=== PATIENT | male | born 1940 | race Caucasian/White ===

== ENCOUNTER 2018-02-18 10:34 | Emergency (ER) | payer MEDICARE ==
--- NOTE | 2018-02-18 11:26 | RAD ---
RIGHT HAND THREE VIEWS: HISTORY: Injury. Right hand pain. FINDINGS: There is an old, incompletely healed fracture of the radial styloid. Degenerative changes are presen t in the wrist and hand. No acute fracture or dislocation is identified. POS: [facility]
[2018-02-18] MEDS ORDERED: Lidocaine 1% w/Epinephrine 1:100K 20 ML VIAL ONE (12:05)
[2018-02-18] MEDS ORDERED: Adacel (T-DAP) 0.5 ML VIAL ONE (12:10)
[2018-02-18] MEDS ORDERED: Bacitracin Zinc 1 Packet ONE (12:39)
== END 2018-02-18 12:55 | disposition home or self-care (01) ==
LOC: ERS 10:34
DX: S61.411A Laceration without foreign body of right hand, initial encounter (principal); S61.012A Laceration without foreign body of left thumb without damage to nail, initial encounter; I25.2 Old myocardial infarction; I10 Essential (primary) hypertension; E11.9 Type 2 diabetes mellitus without complications; W26.8XXA Contact with other sharp object(s), not elsewhere classified, initial encounter; Y92.009 Unspecified place in unspecified non-institutional (private) residence as the place of occurrence of the external cause
CPT/HCPCS: 12002; 90471; 90715; J2001

== ENCOUNTER 2018-03-09 13:27 | Outpatient (CLI) | payer MEDICARE ==
--- NOTE | 2018-03-09 15:16 | RAD ---
CHEST TWO VIEWS: History: Pre op. Comparison: 06-04-15 FINDINGS: There is eventration of the right hemidiaphragm. No focal airspace consolidation, pneumothorax, or ef fusion. No acute osseous abnormality. IMPRESSION: Similar exam. No acute intrathoracic abnormality. POS: [facility]
[2018-03-09 15:46] LABS: #Basophils 0.1 thou/uL (0.0-0.2); #Eosinphils 0.4 thou/uL (0.0-0.7); #Lymphocytes 3.8 thou/uL (1.20-3.40); #Monocytes 1.4 thou/uL (0.11-0.59); #Neutrophils 5.5 thou/uL (1.40-6.50); %Basophils 0.8 % (0.0-1.0); %Eosinophils 3.9 % (0.0-10.0); %Lymphocytes 33.9 % (21.0-51.0); %Monocytes 12.5 % (0.0-10.0); %Neutrophils 48.8 % (42.0-75.0); Bilirubin Negative (Negative); Blood, Urine Negative (Negative); Clarity CLEAR (Clear); Glucose, Urine (Dipstick) Negative (Negative); Leukocyte Trace (Negative); Mean Corpuscular HGB CONC 35.3 g/dL (32.0-36.0); Mean Corpuscular Hemoglobin 32.1 pg (27.0-31.0); Nitrite Negative (Negative); Platelet Count 320 thou/uL (130-400); Protein, Urine (Dipstick) Negative (Neg-Trace); RBC Distribution Width 11.8 % (11.5-14.5); Red Blood Cell (RBC) Count 4.66 mill/uL (4.70-6.10); Specific Gravity, Urine 1.019 (1.002-1.036); Urobilinogen 0.2 mg/dL (0.2-1.0); White Blood Cell (WBC) Count 11.3 thou/uL (4.8-10.8)
[2018-03-09 15:48] LABS: Bacteria/HPF None Seen HPF (None Seen); Hyaline Casts/LPF 0-3 HYALINE CAST LPF (0-3 Hyaline); Squamous Epithelial None Seen HPF (0-3); WBC/HPF 0-3 HPF (0-3)
[2018-03-09 16:04] LABS: Anion Gap 13 mmol/L (10-20); BUN (Urea Nitrogen) 18 mg/dL (8.4-25.7); Calc. Creatinine Clearance 0 mL/min (70-130); Calcium 9.8 mg/dL (7.8-10.44); Carbon Dioxide 25 mmol/L (23-31); Chloride 100 mmol/L (98-107); Estimated GFR-MDRD 72; Glucose 93 mg/dL (83-110); Potassium 4.4 mmol/L (3.5-5.1); Sodium 134 mmol/L (136-145)
[2018-03-09 16:09] LABS: INR-International Normal Ratio 0.9; Prothrombin Time 12.1 SEC (12.0-14.7)
--- NOTE | 2018-03-10 17:01 | EKG ---
Test Reason : Blood Pressure : / mmHG Vent. Rate : 078 BPM Atrial Rate : 078 BPM P-R Int : 204 ms QRS Dur : 076 ms QT Int : 350 ms P-R-T Axes : 061 010 009 degrees QTc Int : 399 ms Normal sinus rhythm Anterior infarct , age undetermined cannot be excluded Abnormal ECG Confirmed by LEEANNE DE LA O ([id number]) on 03/10/2018 5:01:10 PM Referred By: ROD Confirmed By:LEEANNE DE LA O
== END 2018-03-09 13:28 | disposition home or self-care (01) ==
LOC: LABBT 13:27
PROVIDERS: ATTEND Orthopaedic Surgery
DX: Z01.818 Encounter for other preprocedural examination (principal); M16.11 Unilateral primary osteoarthritis, right hip
CPT/HCPCS: 71046; 80048; 81001; 85025; 85610; 86850; 86900; 86901; 87081; 93005; 93010

== ENCOUNTER 2018-10-07 12:19 | Outpatient (CLI) | payer MEDICARE ==
--- NOTE | 2018-10-07 15:20 | MRI ---
FExam: Lumbar spine MRI with and without contrast HISTORY: Radiculopathy COMPARISON: None FINDINGS: Appropriate T1 marrow signal intensity of the lumbar vertebra. Lumbar spine vertebral body height is maintained. There is no fracture. There is mild T2 and STIR hyperintensity with enhancement involving the left and right pedicles at L4 and left facet at L5. Edematous changes are felt to be due to mech anical stress/stress reaction. 4.1 mm of anterolisthesis of L4 upon L5 Symmetric signal intensity of this paraspinal muscles. T2 hyperintensity in the left renal cortex, me asuring 2.5 cm likely renal cortical cyst Conus medullaris terminates at the upper aspect of L1. Postcontrast images demonstrate ad enhancement involving the posterior elements at L4 and L5 as descr ibed above. No additional significant vertebral body enhancement. There is no enhancement within the thecal sac, including the cauda equina and conus medullaris. T12-L1: No significant central canal stenosis or foraminal narrowing L1-L2: No significant central canal stenosis or foraminal narrowing. Mild bilateral facet hypertrophy L2-L3: Generalized disc bulge with a small left subarticular component. Mild central canal stenosis. Disc material abuts but does not obscure the traversing left L3 nerve root. Mild bilateral facet hype rtrophy. Moderate bilateral foraminal narrowing L3-L4: Adequate disc hydration. No significant loss of disc space height. No significant central dio l stenosis. Mild bilateral foraminal narrowing L4-L5: Mild loss of disc space height. Broad-based disc bulge, ligament flavum thickening and facet h ypertrophy result in moderate to severe central canal stenosis. Moderate to severe right and left for aminal narrowing. L5-S1: Posterior laminectomy defect. Minimal central disc bulge without significant central canal jose migeul nosis. On the postcontrast images, there is enhancing scar tissue at the laminectomy defect sites. Th ere appears to be enhancing scar tissue in the right and to a lesser extent left subarticular zones. Scar tissue encompasses bilateral traversing S1 nerve roots. Moderate bilateral foraminal narrowing. IMPRESSION: 1. Edematous change and enhancement involving the posterior elements at L4 and L5 likely due to stres s reaction/mechanical stresses. 2. Laminectomy defect at L5-S1 with enhancing scar tissue at the operative site. There is enhancing s car tissue in both subarticular zones, right greater than left. Scar tissue encompasses bilateral tra versing S1 nerve roots. 3. Moderate to severe central canal stenosis at L4-L5. Moderate to severe bilateral foraminal narrowi ng.
--- NOTE | 2018-10-07 15:28 | MRI ---
FMRI cervical spine with and without contrast: 10/07/2018 HISTORY: 78-year-old male cervicalgia, cervical degenerative disc disease, cervical radiculopathy. COMPARISON: 11/29/2014 FINDINGS: C1-2: No high-grade central stenosis. C2-3: Disc space maintained. No high-grade central stenosis. Diffuse enhancement of bilateral neural foramina. No high-grade bony neural foraminal stenosis. Mild right bony neural foraminal stenosis. An kylosis of right facet joint. Essentially normal left facet joint. C3-4: Anterior metallic plate and screws are new since 2014. Interbody cage with successful ankylosis across the endplates, new since 2014. Chronic degenerative retrolisthesis of C3 on C4 and bony hyper trophy of vertebral body encroach upon anterior aspect of the spinal canal, and causes somewhat sever e central spinal canal stenosis, although not as severe as in 2014. Large bilateral uncinate process osteophytes cause severe bilateral neural foraminal stenosis. No high-grade facet DJD. C4-5: Disc space maintained. Mild ligamentum flavum thickening. Moderate central spinal canal stenosi s. Severe right facet degenerative bony hypertrophy. Essentially normal left facet joint. Severe righ t neural foraminal stenosis. Moderate left neural foraminal stenosis. C5-6: There is a new finding of moderate ligamentum flavum thickening that abuts the dorsal surface o f the spinal cord. Broad-based disc-osteophyte bar complex abuts the ventral surface of the spinal co rd. Mild anterolisthesis of C5 on C6 by a couple of millimeters. Together, these result in severe central spinal canal stenosis. Moderate to severe right degenerative facet changes. Severe left degenerative facet changes. Moderately large bilateral uncinate process o steophytes. Severe bilateral neural foraminal stenosis. C6-7: Again noted is the severe disc space narrowing and endplate irregularity. Broad-based irregular ly-shaped ossific bar encroaches upon the anterior aspect of the spinal canal causing mild central sp inal canal stenosis. Large bilateral uncinate process osteophytes result in severe bilateral neural f oraminal stenosis, left worse than right. No high-grade facet DJD. C7-T1: No central stenosis. Similar severe right facet DJD. Moderate left facet DJD. Mild to moderate right neural foraminal stenosis. No left neural foraminal stenosis. IMPRESSION: 1. Cervical spondylosis with multilevel high-grade facet osteoarthrosis and severe degenerative disc disease. 2. Status post anterior cervical discectomy and fusion at C3-4. 3. Multilevel high-grade central spinal canal stenosis, including severe at C5-6, followed by C3-4. 4. Multilevel high-grade neural foraminal stenosis, including severe.
== END 2018-10-07 12:20 | disposition home or self-care (01) ==
LOC: BICMRI 12:19 → SCSMRI 12:20
PROVIDERS: ATTEND Neurological Surgery
DX: M50.30 Other cervical disc degeneration, unspecified cervical region (principal); M54.16 Radiculopathy, lumbar region; M54.5 Low back pain; M48.061 Spinal stenosis, lumbar region without neurogenic claudication; M48.02 Spinal stenosis, cervical region; R60.0 Localized edema; M47.812 Spondylosis without myelopathy or radiculopathy, cervical region; Z98.1 Arthrodesis status; Z98.890 Other specified postprocedural states
CPT/HCPCS: 72156; 72158; 82565

== ENCOUNTER 2018-10-31 00:11 | Outpatient (CLI) | payer MEDICARE ==
[2018-10-31 12:30] LABS: Hemoglobin 13.8 g/dL (14.0-18.0); Mean Corpuscular HGB CONC 33.7 g/dL (32.0-36.0); Mean Corpuscular Hemoglobin 31.6 pg (27.0-31.0); Mean Corpuscular Volume 93.8 fL (78.0-98.0); Mean Platelet Volume 6.2 fL (7.4-10.4); Platelet Count 309 thou/uL (130-400); RBC Distribution Width 12.1 % (11.5-14.5); Red Blood Cell (RBC) Count 4.37 mill/uL (4.70-6.10); White Blood Cell (WBC) Count 10.9 thou/uL (4.8-10.8)
[2018-10-31 12:51] LABS: Anion Gap 13 mmol/L (10-20); BUN (Urea Nitrogen) 21 mg/dL (8.4-25.7); Calc. Creatinine Clearance 0 mL/min (70-130); Calcium 9.7 mg/dL (7.8-10.44); Carbon Dioxide 23 mmol/L (23-31); Estimated GFR-MDRD 75; Glucose 102 mg/dL (83-110); Potassium 4.3 mmol/L (3.5-5.1)
[2018-10-31 12:53] LABS: Chloride 100 mmol/L (98-107); Sodium 132 mmol/L (136-145)
--- NOTE | 2018-11-01 22:56 | EKG ---
Test Reason : Blood Pressure : / mmHG Vent. Rate : 076 BPM Atrial Rate : 076 BPM P-R Int : 210 ms QRS Dur : 082 ms QT Int : 346 ms P-R-T Axes : 077 041 049 degrees QTc Int : 389 ms Sinus rhythm with 1st degree A-V block Anterior infarct (cited on or before 04-JAN-2015)/can not be excluded Abnormal ECG When compared with ECG of 09-MAR-2018 14:37, No significant change was found Confirmed by YOHANNES CHILD ([id number]) on 11/01/2018 10:56:33 PM Referred By: DAHLIA Confirmed By:YOHANNES CHILD
== END 2018-10-31 00:12 | disposition home or self-care (01) ==
LOC: LABBT 00:11
PROVIDERS: ATTEND Neurological Surgery
DX: Z01.818 Encounter for other preprocedural examination (principal); M48.061 Spinal stenosis, lumbar region without neurogenic claudication
CPT/HCPCS: 93005; 93010

== ENCOUNTER 2018-11-01 14:36 | Emergency (ER) | payer MEDICARE ==
[2018-11-01] MEDS ORDERED: Ondansetron ODT 4 MG TAB ONE (15:00)
[2018-11-01] MEDS ORDERED: Ketorolac Tromethamine 30 MG/ML VIAL ONE (15:01)
[2018-11-01] MEDS ORDERED: Morphine 4 MG/ML VIAL ONE (15:01)
--- NOTE | 2018-11-01 15:30 | RAD ---
CHEST 2 VIEWS: Date: 11/01/18 HISTORY: Dyspnea. COMPARISON: Radiograph dated 03/09/18. FINDINGS: Lungs are clear. No pneumothorax or effusion. Mild ectasia of the descending thoracic aorta, similar. Multiple bridging anterior osteophytes of the thoracic spine. IMPRESSION: No acute intrathoracic abnormality. POS: [facility]
== END 2018-11-01 15:39 | disposition home or self-care (01) ==
LOC: ERS 14:36
DX: S20.212A Contusion of left front wall of thorax, initial encounter (principal); I25.2 Old myocardial infarction; I10 Essential (primary) hypertension; E11.9 Type 2 diabetes mellitus without complications; Z79.899 Other long term (current) drug therapy; Z79.82 Long term (current) use of aspirin; W01.0XXA Fall on same level from slipping, tripping and stumbling without subsequent striking against object, initial encounter
CPT/HCPCS: 71046; 96372; J1885; J2270; Q0162

== ENCOUNTER 2018-11-07 07:34 | Day surgery (SDC) | payer MEDICARE ==
[2018-10-31 10:36] VITALS: BMI 28.8
--- NOTE | 2018-11-06 22:44 | HP ---
HISTORY OF PRESENT ILLNESS: Mr. Patiño is a 78-year-old man, here today for discussion of severe bilateral buttock pain and lower back pain as well as neurogenic claudication. He has an MRI from [facility] that reveals significant L4-L5 stenosis, which is adjacent to his previous lumbar decompressive level L5-S1. He hopes to move forward with surgery and defer on any conservative treatment at this time. PAST MEDICAL HISTORY: Significant for hypercholesterolemia, diabetes, coronary arterial disease, hypertension, and osteoarthritis. CURRENT MEDICATIONS: Amlodipine, finasteride, omeprazole, spironolactone, tamsulosin, lisinopril, isosorbide mononitrate, metformin, metoprolol, pravastatin, pramipexole, aspirin. PAST SURGICAL HISTORY: Right knee replacement, lumbar laminectomy, neck ACDF, left hip replacement, right hip replacement. ALLERGIES: NO KNOWN DRUG ALLERGIES. PHYSICAL EXAMINATION: The patient is alert and oriented x3. Gait is severely antalgic. Lower extremity motor exam is normal. ASSESSMENT: Lumbar stenosis and back pain. PLAN: Dr. Washington met with the patient, reviewed imaging, advocated for L4-L5 decompression. He explained to the patient the risks, benefits, and alternatives to the procedure. The patient expressed understanding and elected to move forward with surgery as discussed. I do believe that the patient is mentally competent and capable of making medical decisions for himself. We will move forward with surgery as planned. Job ID: [id number]
[2018-11-07] MEDS ORDERED: Bupivacaine HCl 0.5%/Epinephrine 1:200,000/PF 30 ml Vial ONE (08:16)
[2018-11-07] MEDS ORDERED: Fentanyl 100 MCG/2 ML VIAL ONE (08:33)
[2018-11-07] MEDS ORDERED: HYDROmorphone 2 MG/ML VIAL ONE ×2 (10:00→10:36)
[2018-11-07] MEDS ORDERED: Tamsulosin HCl 0.4 MG CAP ONE (11:11)
--- NOTE | 2018-11-07 16:34 | OP ---
DATE OF PROCEDURE: 11/07/2018 MOLECULAR SPECTROSCOPIST: Hao Pedersen PA-C. INDICATION: Pain. DIAGNOSIS: Lumbar stenosis. PROCEDURE PERFORMED: Re-operation L4-L5 lumbar decompression. ANESTHESIA: General. DESCRIPTION OF PROCEDURE: The patient was brought into the operating room and placed under general anesthesia. He was flipped from the supine to prone position on the operating room table. A portion of the prior incision site was prepped and draped in the usual sterile fashion. Following an appropriate operative pause, the incision was created. The soft tissues were swept away from midline. Bone defects were identified, and bone margins were utilized to perform additional laminectomy extending up to L4-L5. High-speed cutting drill bit as well as 2, 3, and 4 mm Kerrisons was used to extend the laminectomy up to top of L4 and extended laterally to encompass the medial aspect of the facet joints at this level. The wound was then irrigated. Hemostasis was maintained throughout. The wound was then closed in anatomic layers, and a pressure dressing was applied. There were no known procedural complications. Job ID: [id number]
[2018-11-07] MEDS ORDERED: Glycopyrrolate 0.2 MG/ML 5 ML SYRINGE ONE (16:48)
[2018-11-07] MEDS ORDERED: Dexamethasone 20 MG/5 ML VIAL ONE (16:48)
[2018-11-07] MEDS ORDERED: PHENYLEPHRINE-NS 100 MCG/ML 10 ML SYRINGE ONE (16:48)
[2018-11-07] MEDS ORDERED: Ondansetron PF 4 MG/2 ML Vial ONE (16:48)
[2018-11-07] MEDS ORDERED: Metoclopramide HCl 10 MG/2 ML VIAL ONE (16:48)
[2018-11-07] MEDS ORDERED: Rocuronium Bromide 10 MG/ML (10ML VIAL) ONE (16:48)
[2018-11-07] MEDS ORDERED: Lidocaine 1% PF 5 ML VIAL ONE (16:48)
[2018-11-07] MEDS ORDERED: PROPOFOL 200 MG/20 ML VIAL ONE (16:48)
== END 2018-11-07 13:50 | disposition home or self-care (01) ==
LOC: SDC 07:34
PROVIDERS: ATTEND Neurological Surgery
PROC: 01NB0ZZ Release Lumbar Nerve, Open Approach (ICD-10-PCS; principal; 2018-11-07)
DX: M48.062 Spinal stenosis, lumbar region with neurogenic claudication (principal); E78.00 Pure hypercholesterolemia, unspecified; E11.9 Type 2 diabetes mellitus without complications; I25.10 Atherosclerotic heart disease of native coronary artery without angina pectoris; I10 Essential (primary) hypertension; M19.90 Unspecified osteoarthritis, unspecified site; G47.30 Sleep apnea, unspecified; K21.9 Gastro-esophageal reflux disease without esophagitis; N40.0 Benign prostatic hyperplasia without lower urinary tract symptoms; Z87.891 Personal history of nicotine dependence; Z79.82 Long term (current) use of aspirin; Z79.84 Long term (current) use of oral hypoglycemic drugs; Z79.899 Other long term (current) drug therapy; Z98.1 Arthrodesis status; Z96.651 Presence of right artificial knee joint; Z96.643 Presence of artificial hip joint, bilateral
CPT/HCPCS: 76000; J0131; J0670; J0690; J1100; J1170; J2001; J2405; J2704; J2765; J3010

== ENCOUNTER 2019-03-20 14:15 | Outpatient (CLI) | payer MEDICARE ==
[~2019-03-20 14:15] MED LIST: Gadobenate Dimeglumine 529 MG/1 ML (20ML VIAL) ONE
--- NOTE | 2019-03-20 16:13 | MRI ---
Lumbar spine MRI with and without contrast: 03/20/2019 HISTORY: Lumbar radiculopathy, low back pain, left lower extremity radiculopathy, prior back surgery TECHNIQUE: Multiplanar multisequence MR imaging of the lumbar spine obtained with and without contras t. COMPARISON: 10/07/2018 FINDINGS: The sagittal STIR imaging demonstrates no focal area of osseous marrow edema. On the basis of 5 lumbar type vertebral bodies, conus medullaris terminates at T12-L1. T12-L1: There is disc space narrowing and disc desiccation. No significant central canal or neural fo raminal stenosis. Prominent anterior osteophyte formation noted on the right. L1-2: Mild disc space narrowing and disc desiccation. Prominent anterior osteophyte formation. Mild b ilateral facet hypertrophy. No significant central canal or neural foraminal stenosis. L2-3: There is bilateral facet hypertrophy. There is disc space narrowing and disc desiccation with m ild disc bulge. Anterior osteophyte formation noted. There is no significant central canal or neural foraminal stenosis. L3-4: Mild bilateral facet hypertrophy. Disc desiccation noted. Mild left neural foraminal stenosis. No significant central canal or right neural foraminal stenosis. L4-5: Bilateral laminectomy change noted. Prominent bilateral facet hypertrophy, right greater than l eft. No significant central canal stenosis. Severe bilateral neural foraminal stenosis, not significantly changed. There is a synovial cyst emanating from the right L4-5 facet joint measuring 5 mm, causing a degree o f right lateral recess stenosis. In addition, there is a synovial cyst associated with the left facet joint at L4-5 measuring 7-8 mm. This causes prominent left lateral recess stenosis. The central canal stenosis and prominent right lateral recess stenosis at L4-5 noted on the prior exa mination is significantly improved. L5-S1: Bilateral facet hypertrophy. Mild right and moderate left neural foraminal stenosis. There is disc desiccation and mild disc bulge. No significant central canal stenosis. T2 hyperintense incompletely imaged lesions are noted within both kidneys, likely representing incomp letely imaged cysts. There is rim enhancement associated with the medial synovial cyst emanating from the left L4-5 facet joint. There is soft tissue enhancement posterior to the thecal sac at the L4-5 level consistent with postoperative scar. There is enhancement in the region of the synovial cyst emanating from the r ight L4-5 facet joint as well. IMPRESSION: Significant postoperative and degenerative change of the lumbar spine as detailed above. 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 There is als o severe stable bilateral L4-5 neural foraminal stenosis.
--- NOTE | 2019-03-20 16:19 | RAD ---
Exam: XR Hip Lt 2-3 View HISTORY: Left hip pain. COMPARISON: 06/11/2015. FINDINGS: Again noted is a left total hip prosthesis without evidence of a hardware complication. No acute fracture, dislocation, or other acute osseous abnormality is identified. IMPRESSION: Stable appearance of left total hip prosthesis. No acute osseous abnormality is identified.
== END 2019-03-20 14:16 | disposition home or self-care (01) ==
LOC: BICMRI 14:15
PROVIDERS: ATTEND Neurological Surgery
DX: M25.552 Pain in left hip (principal); M47.26 Other spondylosis with radiculopathy, lumbar region; M48.061 Spinal stenosis, lumbar region without neurogenic claudication; M71.38 Other bursal cyst, other site; Z98.890 Other specified postprocedural states; Z96.642 Presence of left artificial hip joint
CPT/HCPCS: 72158; 82565; A9577

== ENCOUNTER 2019-03-23 06:09 | Emergency (ER) | payer MEDICARE ==
[2019-03-23] MEDS ORDERED: Morphine 4 MG/ML VIAL ONE (07:17)
[2019-03-23] MEDS ORDERED: Dexamethasone 10 MG/ML VIAL ONE (07:18)
[2019-03-23] MEDS ORDERED: Ondansetron PF 4 MG/2 ML Vial ONE (07:41)
== END 2019-03-23 08:30 | disposition home or self-care (01) ==
LOC: ERS 06:09
DX: M54.5 Low back pain (principal); I25.2 Old myocardial infarction; I10 Essential (primary) hypertension; E11.9 Type 2 diabetes mellitus without complications; Z79.899 Other long term (current) drug therapy; Z79.82 Long term (current) use of aspirin; Z79.84 Long term (current) use of oral hypoglycemic drugs
CPT/HCPCS: 96374; 96375; J1100; J2270; J2405

== ENCOUNTER 2019-06-18 12:57 | Emergency (ER) | payer MEDICARE ==
--- NOTE | 2019-06-18 14:13 | RAD ---
EXAM: 3 views of the left wrist HISTORY: Wrist pain after fall COMPARISON: None FINDINGS: 3 views of the left wrist shows no evidence of acute fracture or dislocation. Mild soft tis gualberto swelling is seen. Moderate radiocarpal and first CMC degenerative changes are present. IMPRESSION: Moderate wrist and thumb osteoarthritis without acute osseous abnormality.
--- NOTE | 2019-06-18 14:13 | RAD ---
EXAM: Left Rib series HISTORY: Rib pain after fall COMPARISON: None FINDINGS: Multiple views of the left ribs shows no evidence of displaced rib fracture. No underlying pleural th ickening or pneumothorax are seen. IMPRESSION: 1. No evidence of displaced rib fracture.
--- NOTE | 2019-06-18 14:50 | RAD ---
EXAM: 2 views of the left forearm HISTORY: Forearm pain COMPARISON: None FINDINGS: There is no evidence of acute fracture or dislocation. No soft tissue swelling is seen. Mod erate to severe wrist degenerative changes are seen. There is widening of the scapholunate interval likely secondary to degenerative change.. IMPRESSION: Left wrist osteoarthritis without evidence of acute osseous abnormality.
--- NOTE | 2019-06-18 16:03 | CT ---
CT chest noncontrast CT thoracic spine noncontrast HISTORY: Fall. Chest injury. Back injury. FINDINGS: No evidence of pneumothorax or pleural fluid. Lungs are slightly hyperinflated. Nonspecific 0.9 cm nodule is associated with the pleura of the left major fissure. No parenchymal lung mass evident. No displaced rib fracture visible. Lack of contrast limits evaluation of soft tissues. There is calcification throughout the arterial st ructures. No mediastinal adenopathy apparent. Prominent osteophytosis throughout the vertebral bodies and facets of the thoracic spine. Degenerativ e changes cervical spine also evident. No acute fracture or dislocation. IMPRESSION: No evidence of rib fracture or other acute traumatic process. Atherosclerosis.
== END 2019-06-18 16:18 | disposition home or self-care (01) ==
LOC: ERS 12:57
DX: M79.632 Pain in left forearm (principal); I25.2 Old myocardial infarction; I10 Essential (primary) hypertension; E11.9 Type 2 diabetes mellitus without complications; W18.30XA Fall on same level, unspecified, initial encounter
CPT/HCPCS: 71250

== ENCOUNTER 2019-08-02 07:37 | Day surgery (SDC) | payer MEDICARE ==
[2019-08-01 10:55] VITALS: BMI 28.5
[2019-08-02] MEDS ORDERED: Fentanyl 100 MCG/2 ML VIAL ONE (08:43)
[2019-08-02] MEDS ORDERED: Lidocaine 1% w/Epinephrine 1:100K 20 ML VIAL ONE (08:50)
--- NOTE | 2019-08-02 11:00 | OP ---
DATE OF PROCEDURE: 08/02/2019 EXTRUDER TENDER: Hao Pedersen PA-C INDICATIONS: Pain and numbness. PROCEDURE PERFORMED: Left carpal tunnel release. DIAGNOSIS: Left carpal tunnel syndrome. ANESTHESIA: General. DESCRIPTION OF PROCEDURE: The patient was brought into the operating room and placed under general anesthesia. He was placed on table in a supine position with his arm extended perpendicular to his body. The arm and hand were prepped up to the level just above the elbow. After prepping and draping and after an appropriate operative pause, a linear incision was created along the crease in the wrist in line with the long axis of the 4th digit. This area had previously been infiltrated with lidocaine with epinephrine. A self-retaining retractor was placed. The carpal tunnel ligament was then identified and incised. The incision was extended in both proximal and distal directions until the elements of the carpal tunnel were decompressed. The wound was irrigated. Hemostasis was maintained throughout. The wound was then closed in anatomic layers, and a pressure dressing was applied. There were no known procedural complications. Job ID: [id number]
--- NOTE | 2019-08-02 11:37 | HP ---
HISTORY OF PRESENT ILLNESS: Mr. Patiño is a very pleasant 79-year-old gentleman, who is known to us for prior neck and lower back issues, both evaluations and surgeries, who returns now after having visited with Dr. Bermudez for persistent lower back pain and radicular pain. 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 He also reports significant left hand intrinsic weakness and numbness, and hopes to discuss potential intervention for that as well. PAST MEDICAL HISTORY: Significant for hypercholesterolemia, diabetes, coronary arterial disease, hypertension, and osteoarthritis. CURRENT MEDICATIONS: 1. Amlodipine. 2. Finasteride. 3. Omeprazole. 4. Spironolactone. 5. Tamsulosin. 6. Lisinopril. 7. Isosorbide mononitrate. 8. Metformin. 9. Metoprolol. 10. Pravastatin. 11. Pramipexole. 12. Aspirin. PAST SURGICAL HISTORY: Right knee replacement, lumbar laminectomy, ACDF, left and right hip replacements. ALLERGIES: NO KNOWN DRUG ALLERGIES. PHYSICAL EXAMINATION: NEUROLOGIC: The patient is alert and oriented x3. Gait is severely antalgic. Lower extremity motor exam is normal. He does have a positive bilateral straight leg raise. Additionally, he has sensory disturbance to the left hand across the 1 through 3 digits of said hand. There is a positive median nerve Tinel's. ASSESSMENT: Lumbar stenosis and synovial cyst and left carpal tunnel syndrome. PLAN: Dr. Washington met with Mr. Patiño, discussed exam findings and imaging findings, and advocated for left carpal tunnel syndrome as this is the more pressing issue for Mr. Patiño at the moment. He explained to the patient the risks, benefits, and alternatives to the procedure. The patient expressed understanding and elected to move forward with surgery as discussed. I do believe the patient is mentally competent and capable of making medical decisions for himself. We will move forward with surgery as planned. Job ID: [id number]
[2019-08-02] MEDS ORDERED: PROPOFOL 200 MG/20 ML VIAL ONE (12:10)
[2019-08-02] MEDS ORDERED: Lidocaine 1% PF 5 ML VIAL ONE (12:10)
[2019-08-02] MEDS ORDERED: Ondansetron PF 4 MG/2 ML Vial ONE (12:10)
[2019-08-02] MEDS ORDERED: ePHEDrine/0.9% NaCl/PF SYRINGE 50 mg/10 ml ONE (12:10)
[2019-08-02] MEDS ORDERED: Ketorolac Tromethamine 30 MG/ML VIAL ONE (12:10)
== END 2019-08-02 10:52 | disposition home or self-care (01) ==
LOC: SDC 07:37
PROVIDERS: ATTEND Neurological Surgery
PROC: 01N50ZZ Release Median Nerve, Open Approach (ICD-10-PCS; principal; 2019-08-02)
DX: G56.02 Carpal tunnel syndrome, left upper limb (principal); M48.061 Spinal stenosis, lumbar region without neurogenic claudication; E11.9 Type 2 diabetes mellitus without complications; E78.00 Pure hypercholesterolemia, unspecified; I10 Essential (primary) hypertension; I25.10 Atherosclerotic heart disease of native coronary artery without angina pectoris; M19.90 Unspecified osteoarthritis, unspecified site; Z79.82 Long term (current) use of aspirin; Z79.84 Long term (current) use of oral hypoglycemic drugs; Z79.899 Other long term (current) drug therapy
CPT/HCPCS: J0690; J1885; J2001; J2405; J2704; J3010

== ENCOUNTER 2019-08-23 05:32 | Inpatient (IN) | payer MEDICARE ==
[2019-08-21 15:13] VITALS: BMI 27.8
--- NOTE | 2019-08-22 13:30 | HP ---
HISTORY OF PRESENT ILLNESS: Mr. Patiño is a very pleasant 79-year-old man known to us for prior evaluations of low back and most recently had a carpal tunnel release. He returns now to discuss continuing on lower back pain and symptoms of neurogenic claudication. He has a repeat MRI that reveals severe L4-5 stenosis secondary to synovial cyst. He had aspirations, injections, and all these helped. He continues to suffer from profound pain and gait instability. He hopes to move forward with surgical intervention. PAST MEDICAL HISTORY: Hypercholesterolemia, diabetes, coronary arterial disease, hypertension, osteoarthritis. CURRENT MEDICATIONS: 1. Amlodipine. 2. Finasteride. 3. Omeprazole. 4. Spironolactone. 5. Tamsulosin. 6. Lisinopril. 7. Isosorbide mononitrate. 8. Metformin. 9. Metoprolol. 10. Pravastatin. 11. Pramipexole. 12. Aspirin. PAST SURGICAL HISTORY: Right knee replacement, lumbar laminectomy, ACDF, left and right hip replacement. ALLERGIES: NO KNOWN DRUG ALLERGIES. PHYSICAL EXAMINATION: GENERAL: The patient is alert and oriented x3. Gait is profoundly antalgic and slowed. EXTREMITIES: Lower extremity motor exam is normal. ASSESSMENT: Spinal stenosis. PLAN: Dr. Washington met with the patient, reviewed imaging, advocated for reoperation, L4-5 decompression, and synovial cystectomy as well as posterior instrumentation and fusion. He explained the patient risks, benefits, alternatives to the procedure. The patient expressed understanding and elected to move forward with surgery as discussed. I do believe the patient is mentally competent and capable of making medical decisions for himself. We will move forward with surgery as planned. Job ID: [id number]
[~2019-08-23 05:32] MED LIST changes: +Dexamethasone 20 MG/5 ML VIAL ONE; +EPHEDRINE 25 MG/5 ML SYRINGE ONE; -Gadobenate Dimeglumine 529 MG/1 ML (20ML VIAL) ONE; +Glycopyrrolate 0.2 MG/ML 5 ML SYRINGE ONE; +Lidocaine 1% PF 5 ML VIAL ONE; +Metoclopramide HCl 10 MG/2 ML VIAL ONE; +Ondansetron PF 4 MG/2 ML Vial ONE; +PHENYLEPHRINE-NS 100 MCG/ML 10 ML SYRINGE ONE; +PROPOFOL 200 MG/20 ML VIAL ONE; +Rocuronium Bromide 10 MG/ML (10ML VIAL) ONE
[2019-08-23] MEDS ORDERED: Thrombin 5000 UNITS/5 ML VIAL ONE (06:13)
[2019-08-23] MEDS ORDERED: Bupivacaine PF 0.5% 30 ML VIAL ONE (06:13)
[2019-08-23] MEDS ORDERED: EPINEPHrine 1 MG/ML AMP ONE (06:13)
[2019-08-23 06:49] LABS: #Basophils 0.1 thou/uL (0.0-0.2); #Eosinphils 0.4 thou/uL (0.0-0.7); #Lymphocytes 2.7 thou/uL (1.20-3.40); #Monocytes 1.2 thou/uL (0.11-0.59); #Neutrophils 4.9 thou/uL (1.40-6.50); %Lymphocytes 29.5 % (21.0-51.0); %Monocytes 12.5 % (0.0-10.0); Hemoglobin 14.1 g/dL (14.0-18.0); Mean Corpuscular HGB CONC 35.4 g/dL (32.0-36.0); Mean Corpuscular Hemoglobin 32.2 pg (27.0-31.0); Mean Corpuscular Volume 91.1 fL (78.0-98.0); Platelet Count 344 thou/uL (130-400); RBC Distribution Width 11.9 % (11.5-14.5); Red Blood Cell (RBC) Count 4.36 mill/uL (4.70-6.10); White Blood Cell (WBC) Count 9.2 thou/uL (4.8-10.8)
[2019-08-23] MEDS ORDERED: Fentanyl 100 MCG/2 ML VIAL ONE ×3 (06:49→09:47)
[2019-08-23 07:08] LABS: Anion Gap 15 mmol/L (10-20); BUN (Urea Nitrogen) 23 mg/dL (8.4-25.7); Calc. Creatinine Clearance 87 mL/min (70-130); Calcium 9.5 mg/dL (7.8-10.44); Carbon Dioxide 22 mmol/L (23-31); Chloride 100 mmol/L (98-107); Estimated GFR-MDRD 82; Glucose 117 mg/dL (83-110); Potassium 4.5 mmol/L (3.5-5.1); Sodium 132 mmol/L (136-145)
[2019-08-23] MEDS ORDERED: Ondansetron HCl/PF 4 MG/2 ML Vial IVP PRN (09:08)
[2019-08-23] MEDS ORDERED: PACU-Morphine 4MG/ML VIAL SLOW IVP PRN (09:08)
[2019-08-23] MEDS ORDERED: Morphine Sulfate 2 MG/ML SYRINGE SLOW IVP PRN (09:08)
[2019-08-23] MEDS ORDERED: Promethazine HCl 25 MG/ML VIAL IM PRN (09:08)
[2019-08-23] MEDS ORDERED: HYDROmorphone 2 MG/ML VIAL SLOW IVP PRN (09:08)
[2019-08-23] MEDS ORDERED: Promethazine HCl 25 MG/ML VIAL SLOW IVP PRN (09:08)
[2019-08-23] MEDS ORDERED: Bisacodyl 10 MG SUPP PR PRN (09:24)
[2019-08-23] MEDS ORDERED: Ondansetron PF 4 MG/2 ML Vial IVP PRN (09:24)
[2019-08-23] MEDS ORDERED: tiZANidine HCl 4 MG TAB PO PRN (09:24)
[2019-08-23] MEDS ORDERED: diphenhydrAMINE 50 MG/ML VIAL IVP PRN (09:24)
[2019-08-23] MEDS ORDERED: HYDROcodone/Acetaminophen 7.5/325 mg Tablet PO PRN (09:24)
[2019-08-23] MEDS ORDERED: Mag-Al 1200 mg/1200 mg/30 ML UDCUP PO PRN (09:24)
[2019-08-23] MEDS ORDERED: Acetaminophen 325 MG TAB PO PRN (09:24)
[2019-08-23] MEDS ORDERED: Morphine 2 MG/ML SYRINGE SLOW IVP PRN (09:24)
[2019-08-23] MEDS ORDERED: MELATONIN PO PRN (09:26)
[2019-08-23] MEDS ORDERED: PYRIDOXINE PO PRN (09:26)
[2019-08-23] MEDS ORDERED: [UNRECOGNIZED DRUG - OTHER] PO PRN (09:26)
--- NOTE | 2019-08-23 10:26 | OP ---
DATE OF PROCEDURE: 08/23/2019 BUSINESS INITIATIVES MANAGER: Hao Pedersen PA-C INDICATION: Pain. DIAGNOSES: Lumbar stenosis, lumbar spondylolisthesis, and synovial cyst. PROCEDURES PERFORMED: Reoperation of bilateral L4-L5 facetectomy, resection of synovial cyst, posterolateral instrumented fusion, placement of allograft, and placement of autograft. ANESTHESIA: General. DESCRIPTION OF PROCEDURE: The patient was brought into the operating room and placed under general anesthesia. He was flipped from the supine to prone position on the operating room table. A linear incision was planned at the location of a prior incision. After prepping and draping and after an appropriate preoperative pause, the incision was created. The soft tissues were swept away from midline. Self-retaining retractors were put in the wound for optimal exposure. After confirming the appropriate level with C-arm fluoroscopy, we dissected through a substantial amount of scar tissue to eventually find a laminar defect, where it was extended laterally to encompass the facet joints and to expose the pedicles at L4 and L5. After completing the decompression, pedicle screws were placed at L4 and L5 bilaterally. An intraoperative 3D CT scan was performed to confirm appropriate placement of hardware. Rods were then placed across the screw heads and final tightened under slight degree of distraction bilaterally. Allograft and autograft were placed in the lateral confines of the instrumentation construct. The wound was then irrigated. Hemostasis was maintained throughout. The wound was then closed in anatomic layers and a pressure dressing was applied. There were no known procedural complications. Job ID: [id number]
[2019-08-23] MEDS: Sodium Chloride 0.9% 1,000 ML IV SCH (12:49)
[2019-08-23] MEDS: CEFAZOLIN 2 GM in Premix Bag 1 BAG IVPB SCH ×2 (13:07→21:03)
[2019-08-23] MEDS: HYDROcodone/Acetaminophen 7.5/325 mg Tablet PO PRN ×2 (13:12→19:45)
[2019-08-23] MEDS ORDERED: Non-Formulary Item 1 EACH (Metformin Hcl [Glucophage] 1,000 MG) PO SCH (17:00)
[2019-08-23] MEDS: metFORMIN 500 MG TAB PO SCH (17:03)
[2019-08-23] MEDS ORDERED: Non-Formulary Item 1 EACH (Pravastatin Sodium [Pravastatin Sodium] 80 MG) PO SCH (21:00)
[2019-08-23] MEDS ORDERED: Pramipexole Di-HCl 0.125 MG TAB PO SCH (21:00)
[2019-08-23] MEDS ORDERED: Tamsulosin HCl 0.4 MG CAP PO SCH (21:00)
[2019-08-23] MEDS ORDERED: Atorvastatin Calcium 20 MG TAB PO SCH (21:00)
[2019-08-24] MEDS: Sodium Chloride 0.9% 1,000 ML IV SCH (04:01)
[2019-08-24 04:58] LABS: #Basophils 0.1 thou/uL (0.0-0.2); #Eosinphils 0.1 thou/uL (0.0-0.7); #Lymphocytes 2.1 thou/uL (1.20-3.40); #Monocytes 1.9 thou/uL (0.11-0.59); #Neutrophils 14.6 thou/uL (1.40-6.50); %Basophils 0.5 % (0.0-1.0); %Eosinophils 0.4 % (0.0-10.0); %Monocytes 10.2 % (0.0-10.0); %Neutrophils 77.9 % (42.0-75.0); Hemoglobin 13.3 g/dL (14.0-18.0); Mean Corpuscular HGB CONC 33.2 g/dL (32.0-36.0); Mean Corpuscular Hemoglobin 30.9 pg (27.0-31.0); Mean Corpuscular Volume 93.1 fL (78.0-98.0); Mean Platelet Volume 5.9 fL (7.4-10.4); Platelet Count 338 thou/uL (130-400); RBC Distribution Width 11.9 % (11.5-14.5); Red Blood Cell (RBC) Count 4.29 mill/uL (4.70-6.10); White Blood Cell (WBC) Count 18.7 thou/uL (4.8-10.8)
[2019-08-24 05:17] LABS: Anion Gap 12 mmol/L (10-20); BUN (Urea Nitrogen) 20 mg/dL (8.4-25.7); Calc. Creatinine Clearance 79 mL/min (70-130); Carbon Dioxide 23 mmol/L (23-31); Chloride 99 mmol/L (98-107); Estimated GFR-MDRD 74; Glucose 128 mg/dL (83-110); Potassium 4.4 mmol/L (3.5-5.1); Sodium 130 mmol/L (136-145)
[2019-08-24] MEDS ORDERED: Tamsulosin HCl 0.4 MG CAP PO SCH (06:00)
[2019-08-24 07:50] VITALS: BP 133/77; TEMP 98.4
--- NOTE | 2019-08-24 08:14 | DIS ---
DATE OF ADMISSION: 08/23/2019 DATE OF DISCHARGE: 08/24/2019 Mr. Patiño is an 79-year-old man who was admitted to [facility] by Dr. Mick Washington on August 23, 2019 with subsequent discharge on August 24, 2019. ADMISSION DIAGNOSIS: Status post lumbar decompression and fusion. DISCHARGE DIAGNOSIS: Status post lumbar decompression and fusion. HOSPITAL COURSE: Mr. Patiño's hospital course was uncomplicated. He tolerated postoperative pain well with our typical regimen of oral and IV pain medications. Consultation was ordered to PT who evaluated him and felt he was ambulating and functioning extraordinarily well. The morning after surgery, he was comfortable and ready for discharge and was sent home in great condition with outpatient followup planned in 2 weeks. Job ID: [id number]
[2019-08-24] MEDS ORDERED: Non-Formulary Item 1 EACH (Omeprazole [Omeprazole] 20 MG) PO SCH (09:00)
[2019-08-24] MEDS ORDERED: MV MINERALS PO SCH (09:00)
[2019-08-24] MEDS ORDERED: Isosorbide Mononitrate (ER) 30 MG TAB PO SCH (09:00)
[2019-08-24] MEDS ORDERED: Dutasteride 0.5 MG CAP PO SCH (09:00)
[2019-08-24] MEDS ORDERED: Amlodipine 10 MG TAB PO SCH (09:00)
[2019-08-24] MEDS ORDERED: Multivitamin W/ Minerals 1 TAB PO SCH (09:00)
[2019-08-24] MEDS ORDERED: GINKGO PO SCH (09:00)
[2019-08-24] MEDS ORDERED: Lisinopril 10 MG TAB PO SCH (09:00)
[2019-08-24] MEDS ORDERED: [UNRECOGNIZED DRUG - OTHER] PO SCH (09:00)
[2019-08-24] MEDS ORDERED: LYCOPENE PO SCH (09:00)
[2019-08-24] MEDS ORDERED: Spironolactone 25 MG TAB PO SCH (09:00)
[2019-08-24] MEDS: metFORMIN 500 MG TAB PO SCH (09:27)
[2019-08-24] MEDS: HYDROcodone/Acetaminophen 7.5/325 mg Tablet PO PRN (09:32)
== END 2019-08-24 09:45 | disposition home or self-care (01) | DRG 460 ==
LOC: SURG A 05:32
PROVIDERS: ADMIT Neurological Surgery; ATTEND Neurological Surgery
PROC: 0SG0071 Fusion of Lumbar Vertebral Joint with Autologous Tissue Substitute, Posterior Approach, Posterior Column, Open Approach (ICD-10-PCS; principal; 2019-08-23)
PROC: 01NB0ZZ Release Lumbar Nerve, Open Approach (ICD-10-PCS; 2019-08-23)
DX: M43.16 Spondylolisthesis, lumbar region (principal); M71.38 Other bursal cyst, other site; M48.061 Spinal stenosis, lumbar region without neurogenic claudication; R26.9 Unspecified abnormalities of gait and mobility; I25.10 Atherosclerotic heart disease of native coronary artery without angina pectoris; E11.9 Type 2 diabetes mellitus without complications; I10 Essential (primary) hypertension; E78.00 Pure hypercholesterolemia, unspecified; M19.90 Unspecified osteoarthritis, unspecified site; Z96.651 Presence of right artificial knee joint; Z96.643 Presence of artificial hip joint, bilateral
CPT/HCPCS: 36415; 76000; 80048; 85025; 93005; 93010; C1713; J0171; J0690; J1100; J2001; J2405; J2704; J2765; J3010; S0020

== ENCOUNTER 2020-09-10 08:11 | Outpatient (CLI) | payer MEDICARE ==
[2020-09-10] MEDS ORDERED: Magnevist 469MG/ML 20 ML VIAL ONE (11:11)
== END 2020-09-10 08:12 | disposition home or self-care (01) ==
LOC: BICMRI 08:11
PROVIDERS: ATTEND Neurological Surgery
DX: M47.26 Other spondylosis with radiculopathy, lumbar region (principal); Z98.890 Other specified postprocedural states
CPT/HCPCS: 70210; 72158; 82565; A9579

== ENCOUNTER 2020-10-04 10:11 | Outpatient (CLI) | payer MEDICARE ==
[2020-10-04 12:10] LABS: Anion Gap 12 mmol/L (10-20); BUN (Urea Nitrogen) 15 mg/dL (8.4-25.7); Calc. Creatinine Clearance 0 mL/min (70-130); Calcium 9.4 mg/dL (7.8-10.44); Carbon Dioxide 26 mmol/L (23-31); Chloride 94 mmol/L (98-107); Glucose 109 mg/dL (83-110); Potassium 4.9 mmol/L (3.5-5.1); Sodium 127 mmol/L (136-145)
[2020-10-04 18:35] LABS: SARS-CoV-2 PCR by NAA Not Detected (NotDetected)
== END 2020-10-04 10:12 | disposition home or self-care (01) ==
LOC: LABBT 10:11
PROVIDERS: ATTEND Neurological Surgery
DX: Z01.812 Encounter for preprocedural laboratory examination (principal); M48.062 Spinal stenosis, lumbar region with neurogenic claudication; Z20.822 Contact with and (suspected) exposure to COVID-19
CPT/HCPCS: 80048; 93005; U0003; U0005; 87635; 93010

== ENCOUNTER 2020-10-09 06:15 | Day surgery (SDC) | payer MEDICARE ==
[2020-10-08 10:31] VITALS: BMI 26.7
[2020-10-09] MEDS ORDERED: EPINEPHrine 1 MG/ML AMP ONE (07:05)
[2020-10-09] MEDS ORDERED: Thrombin 5000 UNITS/5 ML VIAL ONE (07:05)
[2020-10-09] MEDS ORDERED: Bupivacaine PF 0.5% 30 ML VIAL ONE (07:05)
[2020-10-09] MEDS ORDERED: HYDROmorphone 0.5 MG/0.5 ML SYRINGE ONE (07:28)
[2020-10-09] MEDS ORDERED: Fentanyl 100 MCG/2 ML VIAL ONE ×2 (07:28→09:19)
[2020-10-09] MEDS ORDERED: ePHEDrine 50 MG/ML VIAL ONE (07:40)
[2020-10-09] MEDS ORDERED: PHENYLEPHRINE-NS 100 MCG/ML 10 ML SYRINGE ONE (07:40)
[2020-10-09] MEDS ORDERED: Ketorolac Tromethamine 30 MG/ML VIAL ONE (07:40)
[2020-10-09] MEDS ORDERED: Lidocaine 1% PF 5 ML VIAL ONE (07:40)
[2020-10-09] MEDS ORDERED: PROPOFOL 200 MG/20 ML VIAL ONE (07:40)
[2020-10-09] MEDS ORDERED: Glycopyrrolate 0.2 MG/ML 5 ML SYRINGE ONE (07:40)
[2020-10-09] MEDS ORDERED: Ondansetron PF 4 MG/2 ML Vial ONE (07:40)
[2020-10-09] MEDS ORDERED: Rocuronium Bromide 10 MG/ML (10ML VIAL) ONE (07:40)
[2020-10-09] MEDS ORDERED: Tamsulosin HCl 0.4 MG CAP ONE (09:27)
== END 2020-10-09 12:43 | disposition home or self-care (01) ==
LOC: SDC 06:15
PROVIDERS: ATTEND Neurological Surgery
PROC: 01NB0ZZ Release Lumbar Nerve, Open Approach (ICD-10-PCS; principal; 2020-10-09)
DX: M48.062 Spinal stenosis, lumbar region with neurogenic claudication (principal); M54.16 Radiculopathy, lumbar region; G89.29 Other chronic pain; M54.9 Dorsalgia, unspecified; M19.90 Unspecified osteoarthritis, unspecified site; M10.9 Gout, unspecified; I25.2 Old myocardial infarction; E78.5 Hyperlipidemia, unspecified; E11.9 Type 2 diabetes mellitus without complications; K21.9 Gastro-esophageal reflux disease without esophagitis; N40.0 Benign prostatic hyperplasia without lower urinary tract symptoms; E78.00 Pure hypercholesterolemia, unspecified; I25.10 Atherosclerotic heart disease of native coronary artery without angina pectoris; Z87.891 Personal history of nicotine dependence; Z79.82 Long term (current) use of aspirin; Z79.84 Long term (current) use of oral hypoglycemic drugs; Z79.899 Other long term (current) drug therapy; Z98.1 Arthrodesis status
CPT/HCPCS: J0171; J0690; J1170; J1885; J2405; J2704; J3010; J3490; S0020

== ENCOUNTER 2021-01-02 09:48 | Outpatient (CLI) | payer MEDICARE | END 2021-01-02 09:49 | disposition home or self-care (01) | LOC: EEVIPCON 09:48 → NM 09:48 | PROVIDERS: ATTEND Orthopaedic Surgery | DX: M70.61 Trochanteric bursitis, right hip (principal); M25.551 Pain in right hip; S76.019A Strain of muscle, fascia and tendon of unspecified hip, initial encounter; M16.11 Unilateral primary osteoarthritis, right hip; Z96.641 Presence of right artificial hip joint | CPT/HCPCS: 78315; A9503 ==

== ENCOUNTER 2021-01-14 08:18 | Outpatient (CLI) | payer MEDICARE | END 2021-01-14 08:19 | disposition home or self-care (01) | LOC: BICRAD 08:18 | PROVIDERS: ATTEND Neurological Surgery | DX: M47.26 Other spondylosis with radiculopathy, lumbar region (principal); Z98.890 Other specified postprocedural states | CPT/HCPCS: 72110 ==

== ENCOUNTER 2021-02-28 07:12 | Day surgery (SDC) | payer MEDICARE ==
[2021-02-28] MEDS ORDERED: Fentanyl 100 MCG/2 ML VIAL ONE ×2 (08:29→11:55)
[2021-02-28] MEDS ORDERED: EPINEPHrine 1 MG/ML AMP ONE (08:35)
[2021-02-28] MEDS ORDERED: Bupivacaine PF 0.5% 30 ML VIAL ONE (08:35)
[2021-02-28] MEDS ORDERED: Thrombin 5000 UNITS/5 ML VIAL ONE (08:35)
[2021-02-28] MEDS ORDERED: Glycopyrrolate 0.2 MG/ML 5 ML SYRINGE ONE (08:54)
[2021-02-28] MEDS ORDERED: PROPOFOL 200 MG/20 ML VIAL ONE (08:54)
[2021-02-28] MEDS ORDERED: diphenhydrAMINE 50 MG/ML VIAL ONE (08:54)
[2021-02-28] MEDS ORDERED: Rocuronium Bromide 10 MG/ML (10ML VIAL) ONE (08:54)
[2021-02-28] MEDS ORDERED: Ondansetron PF 4 MG/2 ML Vial ONE (08:54)
[2021-02-28] MEDS ORDERED: Dexamethasone 20 MG/5 ML VIAL ONE (08:54)
[2021-02-28] MEDS ORDERED: Ketorolac Tromethamine 30 MG/ML VIAL ONE (08:54)
[2021-02-28] MEDS ORDERED: PHENYLEPHRINE-NS 100 MCG/ML 10 ML SYRINGE ONE (08:54)
[2021-02-28] MEDS ORDERED: Lidocaine 2% PF 5 ML VIAL ONE (08:54)
[2021-02-28] MEDS ORDERED: HYDROmorphone 2 MG/ML VIAL ONE (09:19)
[2021-02-28] MEDS ORDERED: Phenylephrine 10 MG/ML VIAL ONE (10:05)
[2021-02-28] MEDS ORDERED: Tamsulosin HCl 0.4 MG CAP ONE (11:35)
== END 2021-02-28 14:05 | disposition home or self-care (01) ==
LOC: SDC 07:12
PROVIDERS: ATTEND Neurological Surgery
PROC: 0SG0070 Fusion of Lumbar Vertebral Joint with Autologous Tissue Substitute, Anterior Approach, Anterior Column, Open Approach (ICD-10-PCS; principal; 2021-02-28)
PROC: 0ST20ZZ Resection of Lumbar Vertebral Disc, Open Approach (ICD-10-PCS; 2021-02-28)
DX: M43.06 Spondylolysis, lumbar region (principal); M48.061 Spinal stenosis, lumbar region without neurogenic claudication; E11.9 Type 2 diabetes mellitus without complications; E78.00 Pure hypercholesterolemia, unspecified; I10 Essential (primary) hypertension; I25.10 Atherosclerotic heart disease of native coronary artery without angina pectoris; M19.90 Unspecified osteoarthritis, unspecified site; Z79.82 Long term (current) use of aspirin; Z79.84 Long term (current) use of oral hypoglycemic drugs; Z79.899 Other long term (current) drug therapy; Z87.891 Personal history of nicotine dependence
CPT/HCPCS: 20930; 20936; 22612; 22614; 76000; C1713 ×2; C1768; J0171; J0690; J1100; J1170; J1200; J1885; J2001; J2370; J2405; J2704; J3010; S0020

== ENCOUNTER 2021-05-27 09:33 | Outpatient (CLI) | payer MEDICARE | END 2021-05-27 09:34 | disposition home or self-care (01) | LOC: BICRAD 09:33 | PROVIDERS: ATTEND Physician Assistant Medical | DX: K59.00 Constipation, unspecified (principal); R63.4 Abnormal weight loss; R11.0 Nausea | CPT/HCPCS: 71046 ==

== ENCOUNTER 2021-06-08 14:08 | Inpatient (IN) | payer MEDICARE ==
[2021-06-08 15:03] LABS: #Basophils 0.1 thou/uL (0.0-0.2); #Eosinphils 0.3 thou/uL (0.0-0.7); #Lymphocytes 2.1 thou/uL (1.20-3.40); #Monocytes 1.2 thou/uL (0.11-0.59); #Neutrophils 9.5 thou/uL (1.40-6.50); %Basophils 0.6 % (0.0-1.0); %Eosinophils 2.4 % (0.0-10.0); %Monocytes 9.4 % (0.0-10.0); %Neutrophils 71.6 % (42.0-75.0); Hemoglobin 13.5 g/dL (14.0-18.0); Mean Corpuscular HGB CONC 35.1 g/dL (32.0-36.0); Mean Corpuscular Volume 91.2 fL (78.0-98.0); Mean Platelet Volume 5.6 fL (7.4-10.4); Platelet Count 351 thou/uL (130-400); RBC Distribution Width 12.1 % (11.5-14.5); Red Blood Cell (RBC) Count 4.21 mill/uL (4.70-6.10); White Blood Cell (WBC) Count 13.2 thou/uL (4.8-10.8)
[2021-06-08 15:28] LABS: ALT (SGPT) 18 U/L (8-55); AST (SGOT) 18 U/L (5-34); Alkaline Phosphatase 92 U/L (40-110); Anion Gap 14 mmol/L (10-20); BUN (Urea Nitrogen) 19 mg/dL (8.4-25.7); Bilirubin, Total 0.5 mg/dL (0.2-1.2); Calc. Creatinine Clearance 0 mL/min (70-130); Calcium 10.2 mg/dL (7.8-10.44); Carbon Dioxide 22 mmol/L (23-31); Chloride 96 mmol/L (98-107); Globulin 3.2 g/dL (2.4-3.5); Glucose 103 mg/dL (83-110); Potassium 4.3 mmol/L (3.5-5.1); Protein, Total 7.2 g/dL (5.8-8.1); Sodium 128 mmol/L (136-145)
[2021-06-08] MEDS ORDERED: Cefepime 2 GM VIAL ONE (15:31)
[2021-06-08] MEDS ORDERED: Vancomycin 1 GM/200 ML BAG ONE (15:51)
[2021-06-08] MEDS ORDERED: Ondansetron PF 4 MG/2 ML Vial ONE (17:22)
[2021-06-08] MEDS ORDERED: HumaLOG 300 UNITS/3 ML VIAL SC PRN (18:00)
[2021-06-08] MEDS ORDERED: Bisacodyl 5 MG TAB PO PRN (18:00)
[2021-06-08] MEDS ORDERED: Dextrose 5% in Water 1,000 ML IV PRN (18:00)
[2021-06-08] MEDS ORDERED: Dextrose 50% Abboject 50 ML SYRINGE SLOW IVP PRN (18:00)
[2021-06-08] MEDS ORDERED: Vancomycin 1 GM in Premix Bag 1 BAG IVPB SCH (18:15)
[2021-06-08 20:37] VITALS: BMI 26.4
[2021-06-08] MEDS: Atorvastatin Calcium 20 MG TAB PO SCH (20:57)
[2021-06-08] MEDS: Tamsulosin HCl 0.4 MG CAP PO SCH (20:57)
[2021-06-09] MEDS: Acetaminophen 325 MG TAB PO PRN ×2 (02:28→13:47)
[2021-06-09] MEDS: Cefepime 2 GM in Sodium Chloride 0.9% 100 ML IVPB SCH ×2 (04:32→16:29)
[2021-06-09 07:55] LABS: #Basophils 0.1 thou/uL (0.0-0.2); #Eosinphils 0.4 thou/uL (0.0-0.7); #Lymphocytes 2.3 thou/uL (1.20-3.40); #Monocytes 0.9 thou/uL (0.11-0.59); #Neutrophils 4.6 thou/uL (1.40-6.50); %Basophils 0.9 % (0.0-1.0); %Eosinophils 4.9 % (0.0-10.0); %Lymphocytes 27.5 % (21.0-51.0); %Neutrophils 55.6 % (42.0-75.0); Hemoglobin 12.6 g/dL (14.0-18.0); Mean Corpuscular HGB CONC 34.4 g/dL (32.0-36.0); Mean Corpuscular Hemoglobin 31.8 pg (27.0-31.0); Mean Corpuscular Volume 92.4 fL (78.0-98.0); Mean Platelet Volume 5.8 fL (7.4-10.4); Platelet Count 325 thou/uL (130-400); Red Blood Cell (RBC) Count 3.95 mill/uL (4.70-6.10); White Blood Cell (WBC) Count 8.2 thou/uL (4.8-10.8)
[2021-06-09 08:15] LABS: Anion Gap 12 mmol/L (10-20); BUN (Urea Nitrogen) 12 mg/dL (8.4-25.7); Calc. Creatinine Clearance 81 mL/min (70-130); Calcium 9.5 mg/dL (7.8-10.44); Carbon Dioxide 23 mmol/L (23-31); Chloride 97 mmol/L (98-107); Glucose 101 mg/dL (83-110); Potassium 4.1 mmol/L (3.5-5.1); Sodium 128 mmol/L (136-145)
[2021-06-09] MEDS: Dutasteride 0.5 MG CAP PO SCH (08:21)
[2021-06-09] MEDS: Enoxaparin Sodium 40 MG/0.4 ML SYRINGE SC SCH (08:21)
[2021-06-09] MEDS: Amlodipine 10 MG TAB PO SCH (08:21)
[2021-06-09] MEDS: metFORMIN 500 MG TAB PO SCH ×2 (08:23→18:07)
[2021-06-09] MEDS: Lisinopril 10 MG TAB PO SCH (08:24)
[2021-06-09] MEDS: Aspirin Chewable 81 MG TAB PO SCH (08:24)
[2021-06-09] MEDS: Saccharomyces boulardii 250 MG CAP PO SCH (08:25)
[2021-06-09 08:43] LABS: SARS-CoV-2 PCR by NAA Not Detected (NotDetected)
[2021-06-09] MEDS ORDERED: Spironolactone 25 MG TAB PO SCH (10:00)
[2021-06-09 10:12] LABS: Hemoglobin A1c 5.7 % (4.0-6.0)
[2021-06-09] MEDS: VANCOMYCIN 1.25 GM/250 ML BAG 1.25 GM in Premix Bag 1 BAG IVPB SCH (17:04)
[2021-06-09] MEDS: Atorvastatin Calcium 20 MG TAB PO SCH (21:16)
[2021-06-09] MEDS: Tamsulosin HCl 0.4 MG CAP PO SCH (21:16)
[2021-06-10] MEDS: Cefepime 2 GM in Sodium Chloride 0.9% 100 ML IVPB SCH ×2 (05:08→15:43)
[2021-06-10] MEDS: Polyethylene Glycol 3350 17 GM Packet PO SCH (09:03)
[2021-06-10] MEDS: Enoxaparin Sodium 40 MG/0.4 ML SYRINGE SC SCH (09:03)
[2021-06-10] MEDS: Amlodipine 10 MG TAB PO SCH (09:04)
[2021-06-10] MEDS: Dutasteride 0.5 MG CAP PO SCH (09:04)
[2021-06-10] MEDS: Lisinopril 10 MG TAB PO SCH (09:04)
[2021-06-10] MEDS: Saccharomyces boulardii 250 MG CAP PO SCH (09:04)
[2021-06-10] MEDS: Spironolactone 25 MG TAB PO SCH (09:05)
[2021-06-10] MEDS: Aspirin Chewable 81 MG TAB PO SCH (09:05)
[2021-06-10] MEDS: metFORMIN 500 MG TAB PO SCH ×2 (09:05→16:44)
[2021-06-10] MEDS: Acetaminophen 325 MG TAB PO PRN (11:57)
[2021-06-10 15:21] LABS: Vancomycin, Trough 5.9 ug/mL
[2021-06-10] MEDS: VANCOMYCIN 1.25 GM/250 ML BAG 1.25 GM in Premix Bag 1 BAG IVPB SCH (16:43)
[2021-06-10] MEDS: Tamsulosin HCl 0.4 MG CAP PO SCH (20:40)
[2021-06-10] MEDS: Atorvastatin Calcium 20 MG TAB PO SCH (20:40)
[2021-06-11] MEDS: Cefepime 2 GM in Sodium Chloride 0.9% 100 ML IVPB SCH (03:10)
[2021-06-11] MEDS ORDERED: VANCOMYCIN 1.25 GM/250 ML BAG 1.25 GM in Premix Bag 1 BAG IVPB SCH (04:00)
[2021-06-11] MEDS: Polyethylene Glycol 3350 17 GM Packet PO SCH (08:19)
[2021-06-11] MEDS: metFORMIN 500 MG TAB PO SCH ×2 (08:23→16:45)
[2021-06-11] MEDS: Saccharomyces boulardii 250 MG CAP PO SCH (08:25)
[2021-06-11] MEDS: Aspirin Chewable 81 MG TAB PO SCH (08:25)
[2021-06-11] MEDS: Amlodipine 10 MG TAB PO SCH (08:25)
[2021-06-11] MEDS: Dutasteride 0.5 MG CAP PO SCH (08:25)
[2021-06-11] MEDS: Lisinopril 10 MG TAB PO SCH (08:25)
[2021-06-11] MEDS: Enoxaparin Sodium 40 MG/0.4 ML SYRINGE SC SCH (08:26)
[2021-06-11] MEDS: Spironolactone 25 MG TAB PO SCH (08:39)
[2021-06-11] MEDS ORDERED: FLU VACC QS2021-22(65YR UP)/PF 240 MCG/0.7 ML SYRINGE IM ONE (09:00)
[2021-06-11] MEDS ORDERED: Magnevist 469MG/ML 20 ML VIAL ONE (09:48)
[2021-06-11] MEDS ORDERED: Doxycycline 100 MG CAP PO SCH ×2 (13:40→21:00)
[2021-06-11] MEDS ORDERED: Ciprofloxacin 500 MG TAB PO SCH ×2 (13:50→20:00)
[2021-06-11 16:30] VITALS: BP 115/69; TEMP 97.6
== END 2021-06-11 18:06 | disposition home or self-care (01) | DRG 872 ==
LOC: ERS 14:08 → SURG A 16:22
PROVIDERS: ADMIT Internal Medicine; ATTEND Internal Medicine
DX: A41.9 Sepsis, unspecified organism (principal); E87.1 Hypo-osmolality and hyponatremia; L08.89 Other specified local infections of the skin and subcutaneous tissue; S61.211A Laceration without foreign body of left index finger without damage to nail, initial encounter; L03.012 Cellulitis of left finger; Z96.651 Presence of right artificial knee joint; E78.5 Hyperlipidemia, unspecified; Z96.643 Presence of artificial hip joint, bilateral; I25.10 Atherosclerotic heart disease of native coronary artery without angina pectoris; E11.22 Type 2 diabetes mellitus with diabetic chronic kidney disease; I12.9 Hypertensive chronic kidney disease with stage 1 through stage 4 chronic kidney disease, or unspecified chronic kidney disease; D53.9 Nutritional anemia, unspecified; N40.0 Benign prostatic hyperplasia without lower urinary tract symptoms; I25.2 Old myocardial infarction; Z79.899 Other long term (current) drug therapy; Z79.84 Long term (current) use of oral hypoglycemic drugs; Z79.82 Long term (current) use of aspirin; Z82.49 Family history of ischemic heart disease and other diseases of the circulatory system; Z98.1 Arthrodesis status; Z87.891 Personal history of nicotine dependence; W26.8XXA Contact with other sharp object(s), not elsewhere classified, initial encounter
CPT/HCPCS: 36415; 36416; 80048; 80053; 80202; 83036; 83605; 85025; 87040; 87070; 87205; 96365; 96366; 96367; J0692; J1650; J2405; J3370; J3490; U0003; U0005

== ENCOUNTER 2021-06-23 07:51 | Outpatient (CLI) | payer MEDICARE | END 2021-06-23 07:52 | disposition home or self-care (01) | LOC: BICCT 07:51 | PROVIDERS: ATTEND Physician Assistant Medical | DX: K59.00 Constipation, unspecified (principal); R63.4 Abnormal weight loss; R11.0 Nausea; N28.1 Cyst of kidney, acquired; K76.89 Other specified diseases of liver; K86.89 Other specified diseases of pancreas; K57.30 Diverticulosis of large intestine without perforation or abscess without bleeding | CPT/HCPCS: 74177 ==

== ENCOUNTER 2021-07-15 11:56 | Outpatient (CLI) | payer MEDICARE | END 2021-07-15 11:57 | disposition home or self-care (01) | LOC: BICCT 11:56 | PROVIDERS: ATTEND Specialist | DX: M51.16 Intervertebral disc disorders with radiculopathy, lumbar region (principal); M47.26 Other spondylosis with radiculopathy, lumbar region; M51.27 Other intervertebral disc displacement, lumbosacral region; M43.16 Spondylolisthesis, lumbar region; M48.061 Spinal stenosis, lumbar region without neurogenic claudication; Z98.890 Other specified postprocedural states | CPT/HCPCS: 72131 ==

== ENCOUNTER 2021-11-18 20:13 | Emergency (ER) | payer MEDICARE ==
[2021-11-18] MEDS ORDERED: Morphine 4 MG/ML VIAL ONE (21:29)
== END 2021-11-18 21:48 | disposition home or self-care (01) ==
LOC: ERS 20:13
DX: M25.551 Pain in right hip (principal); M25.561 Pain in right knee; I25.2 Old myocardial infarction; I10 Essential (primary) hypertension; E11.9 Type 2 diabetes mellitus without complications
CPT/HCPCS: 96372; J2270

== ENCOUNTER 2022-01-27 12:13 | Outpatient (CLI) | payer MEDICARE | END 2022-01-27 12:14 | disposition home or self-care (01) | LOC: MRI 12:13 | PROVIDERS: ATTEND Physician Assistant Medical | DX: K86.2 Cyst of pancreas (principal); K59.00 Constipation, unspecified | CPT/HCPCS: 74183 ==

== ENCOUNTER 2022-02-18 09:22 | Outpatient (CLI) | payer MEDICARE ==
[2022-02-18 10:49] LABS: #Basophils 0.1 10x3/uL (0.0-0.2); #Eosinphils 0.3 10x3/uL (0.0-0.5); #Monocytes 1.4 10x3/uL (0.0-1.1); #Neutrophils 6.4 10x3/uL (1.5-8.4); %Basophils 0.8 % (0.0-2.0); %Eosinophils 3.3 % (0.0-6.0); %Lymphocytes 19.3 % (18.0-47.0); %Monocytes 13.7 % (0.0-10.0); %Neutrophils 62.5 % (40.0-75.0); Hemoglobin 13.4 g/dL (13.5-17.5); Mean Corpuscular HGB CONC 34.7 g/dL (32.0-36.0); Mean Corpuscular Hemoglobin 30.9 pg (27.0-33.0); Mean Corpuscular Volume 89.1 fl (81.2-95.1); Mean Platelet Volume 8.5 fl (7.4-10.4); Platelet Count 314 10x3/uL (150-450); Red Blood Cell (RBC) Count 4.33 10x6/uL (4.32-5.72); White Blood Cell (WBC) Count 10.3 10x3/uL (3.5-10.5)
[2022-02-18 11:12] LABS: Anion Gap 15 mmol/L (10-20); BUN (Urea Nitrogen) 24 mg/dL (8.4-25.7); Calc. Creatinine Clearance 0 mL/min (70-130); Calcium 10.1 mg/dL (7.8-10.44); Carbon Dioxide 23 mmol/L (23-31); Chloride 100 mmol/L (98-107); Estimated GFR 87; Glucose 106 mg/dL (83-110); Potassium 4.7 mmol/L (3.5-5.1); Sodium 133 mmol/L (136-145)
[2022-02-18 11:13] LABS: INR-International Normal Ratio 0.9; Prothrombin Time 9.8 sec (9.5-12.1)
== END 2022-02-18 09:23 | disposition home or self-care (01) ==
LOC: LABBT 09:22
PROVIDERS: ATTEND Orthopaedic Surgery
DX: Z01.812 Encounter for preprocedural laboratory examination (principal); Z20.822 Contact with and (suspected) exposure to COVID-19
CPT/HCPCS: 80048; 85025; 85610; 87081; 87811

== ENCOUNTER 2022-02-23 06:16 | Observation (INO) | payer MEDICARE ==
[2022-02-20 11:12] VITALS: BMI 24.4
[2022-02-23] MEDS ORDERED: Sodium Chloride 0.9% 100 ML ONE ×2 (07:18→08:56)
[2022-02-23] MEDS ORDERED: Tranexamic Acid 1,000 MG/10 ML VIAL ONE (07:18)
[2022-02-23] MEDS ORDERED: Vancomycin (BATCH) 1.5 GRAM/300 ML BAG ONE (07:18)
[2022-02-23] MEDS ORDERED: Fentanyl 100 MCG/2 ML VIAL ONE ×2 (07:56→11:15)
[2022-02-23] MEDS ORDERED: Midazolam HCl 2 mg/2 ml Vial ONE (07:56)
[2022-02-23] MEDS ORDERED: Fentanyl 100 MCG/2 ML VIAL IV PRN (08:44)
[2022-02-23] MEDS ORDERED: HYDROcodone/Acetaminophen 10/325 mg Tablet PO PRN (08:44)
[2022-02-23] MEDS ORDERED: Zolpidem Tartrate 5 MG TAB PO PRN ×2 (08:45→09:12)
[2022-02-23] MEDS ORDERED: Ondansetron PF 4 MG/2 ML Vial IVP PRN ×2 (08:45→09:12)
[2022-02-23] MEDS ORDERED: traMADol HCl 50 MG TAB PO PRN ×2 (08:45)
[2022-02-23] MEDS ORDERED: Ropivacaine 0.2% 550 ML 550 ML NERVE BLCK SCH (08:45)
[2022-02-23] MEDS ORDERED: Promethazine HCl 25 MG/ML VIAL IM PRN ×3 (08:45→10:45)
[2022-02-23] MEDS ORDERED: CEFAZOLIN 2 GM VIAL ONE (08:56)
[2022-02-23] MEDS ORDERED: Ketamine 50 MG/ML (10ML VIAL) ONE (09:05)
[2022-02-23] MEDS ORDERED: fentaNYL Citrate/PF 100 MCG/2 ML SYRINGE ONE (09:05)
[2022-02-23] MEDS ORDERED: Acetaminophen 325 MG TAB PO PRN (09:12)
[2022-02-23] MEDS ORDERED: diphenhydrAMINE 25 MG CAP PO PRN (09:12)
[2022-02-23] MEDS ORDERED: PROPOFOL 200 MG/20 ML VIAL ONE (09:19)
[2022-02-23] MEDS ORDERED: Ondansetron PF 4 MG/2 ML Vial ONE (09:19)
[2022-02-23] MEDS ORDERED: Bupivacaine HCl 0.5%/Epinephrine 1:200,000/PF 30 ml Vial ONE (09:19)
[2022-02-23] MEDS ORDERED: ePHEDrine 50 MG/ML VIAL ONE (09:19)
[2022-02-23] MEDS ORDERED: Lidocaine 1% PF 5 ML VIAL ONE (09:19)
[2022-02-23] MEDS ORDERED: Ondansetron HCl/PF 4 MG/2 ML Vial IVP PRN (10:45)
[2022-02-23] MEDS ORDERED: Promethazine HCl 25 MG/ML VIAL IVPB PRN (10:45)
[2022-02-23] MEDS: Sodium Chloride 0.9% 1,000 ML IV SCH ×2 (11:55→18:07)
[2022-02-23] MEDS: Acetaminophen 325 MG TAB PO SCH ×3 (12:56→23:37)
[2022-02-23] MEDS: Ketorolac Tromethamine 30 MG/ML VIAL IVP SCH ×3 (12:57→23:37)
[2022-02-23] MEDS ORDERED: Ketorolac Tromethamine 30 MG/ML VIAL ONE (13:01)
[2022-02-23] MEDS ORDERED: Acetaminophen 325 MG TAB ONE (13:02)
[2022-02-23] MEDS ORDERED: PYRIDOXINE PO PRN (13:12)
[2022-02-23] MEDS ORDERED: MELATONIN PO PRN (13:12)
[2022-02-23] MEDS ORDERED: metFORMIN 500 MG TAB PO SCH (17:00)
[2022-02-23] MEDS: CEFAZOLIN 2 GM in Sodium Chloride 0.9% 100 ML IVPB SCH (18:08)
[2022-02-23] MEDS: Aspirin 81 mg Enteric Coated Tablet PO SCH (20:29)
[2022-02-23] MEDS ORDERED: Atorvastatin Calcium 20 MG TAB PO SCH (21:00)
[2022-02-23] MEDS ORDERED: Tamsulosin HCl 0.4 MG CAP PO SCH (21:00)
[2022-02-23] MEDS ORDERED: Pramipexole Di-HCl 0.25 MG TAB PO SCH (21:00)
[2022-02-23] MEDS ORDERED: MV MINERALS PO SCH (21:00)
[2022-02-23] MEDS ORDERED: GINKGO PO SCH (21:00)
[2022-02-23] MEDS ORDERED: LYCOPENE PO SCH (21:00)
[2022-02-23] MEDS ORDERED: [UNRECOGNIZED DRUG - OTHER] PO SCH (21:00)
[2022-02-23] MEDS ORDERED: Senokot S 8.6-50 MG TAB PO SCH (21:00)
[2022-02-24] MEDS: CEFAZOLIN 2 GM in Sodium Chloride 0.9% 100 ML IVPB SCH (00:54)
[2022-02-24 04:47] VITALS: TEMP 98.2
[2022-02-24 05:31] LABS: Hemoglobin 11.1 g/dL (14.0-18.0); Mean Corpuscular HGB CONC 33.2 g/dL (32.0-36.0); Mean Corpuscular Hemoglobin 31.8 pg (27.0-31.0); Mean Corpuscular Volume 95.8 fL (78.0-98.0); Mean Platelet Volume 5.8 fL (7.4-10.4); Platelet Count 267 thou/uL (130-400); RBC Distribution Width 11.9 % (11.5-14.5); Red Blood Cell (RBC) Count 3.49 mill/uL (4.70-6.10)
[2022-02-24] MEDS: Sodium Chloride 0.9% 1,000 ML IV SCH (05:53)
[2022-02-24] MEDS: Acetaminophen 325 MG TAB PO SCH ×2 (05:54→11:31)
[2022-02-24] MEDS: Ketorolac Tromethamine 30 MG/ML VIAL IVP SCH ×2 (05:54→11:29)
[2022-02-24] MEDS ORDERED: Spironolactone 25 MG TAB PO SCH (08:00)
[2022-02-24] MEDS ORDERED: Ferrous Gluconate 324 MG TAB PO SCH (08:00)
[2022-02-24 08:15] VITALS: BP 138/68
[2022-02-24] MEDS ORDERED: Amlodipine 10 MG TAB PO SCH (09:00)
[2022-02-24] MEDS ORDERED: Loratadine 10 MG TAB PO SCH (09:00)
[2022-02-24] MEDS ORDERED: Aspirin Chewable 81 MG TAB PO SCH (09:00)
[2022-02-24] MEDS ORDERED: Multivitamin W/ Minerals 1 TAB PO SCH (09:00)
[2022-02-24] MEDS ORDERED: Dutasteride 0.5 MG CAP PO SCH (09:00)
[2022-02-24] MEDS ORDERED: Lisinopril 10 MG TAB PO SCH (09:00)
[2022-02-24] MEDS ORDERED: Senokot S 8.6-50 MG TAB PO SCH (09:00)
[2022-02-24] MEDS: Aspirin 81 mg Enteric Coated Tablet PO SCH (09:26)
== END 2022-02-24 11:36 | disposition home health service (06) ==
LOC: SDC 06:16 → SJJU 16:59 → INTOOBSV 16:59
PROVIDERS: ADMIT Orthopaedic Surgery; ATTEND Orthopaedic Surgery
PROC: 3E0T3BZ Introduction of Anesthetic Agent into Peripheral Nerves and Plexi, Percutaneous Approach (ICD-10-PCS; principal; 2022-02-23)
PROC: 0SRD0J9 Replacement of Left Knee Joint with Synthetic Substitute, Cemented, Open Approach (ICD-10-PCS; 2022-02-23)
PROC: 8E0YXBZ Computer Assisted Procedure of Lower Extremity (ICD-10-PCS; 2022-02-23)
DX: M17.12 Unilateral primary osteoarthritis, left knee (principal); E11.9 Type 2 diabetes mellitus without complications; I10 Essential (primary) hypertension; K21.9 Gastro-esophageal reflux disease without esophagitis; N40.0 Benign prostatic hyperplasia without lower urinary tract symptoms; I25.2 Old myocardial infarction; I25.10 Atherosclerotic heart disease of native coronary artery without angina pectoris; N52.9 Male erectile dysfunction, unspecified; E78.5 Hyperlipidemia, unspecified; G47.30 Sleep apnea, unspecified; G89.29 Other chronic pain; M54.9 Dorsalgia, unspecified; M10.9 Gout, unspecified; D64.9 Anemia, unspecified; Z87.891 Personal history of nicotine dependence; Z79.84 Long term (current) use of oral hypoglycemic drugs; Z79.899 Other long term (current) drug therapy; Z96.651 Presence of right artificial knee joint; Z96.643 Presence of artificial hip joint, bilateral; Z96.82 Presence of neurostimulator; Z98.1 Arthrodesis status
CPT/HCPCS: 20985; 27447; 64448; 73560; 82962; 85027; 97110 ×2; 97116 ×2; 97530; A4306; C1713; C1776; J3370; 36415; 36416; J0690; J1885; J2250; J2405; J2704; J2795; J3010; J3490; J7050

== ENCOUNTER 2022-02-28 07:16 | Inpatient (IN) | payer MEDICARE ==
[2022-02-28] MEDS ORDERED: Morphine 4 MG/ML VIAL ONE (07:39)
[2022-02-28] MEDS ORDERED: Ondansetron PF 4 MG/2 ML Vial ONE (07:39)
[2022-02-28 08:43] LABS: #Basophils 0.1 thou/uL (0.0-0.2); #Eosinphils 0.3 thou/uL (0.0-0.7); #Lymphocytes 1.3 thou/uL (1.20-3.40); #Monocytes 1.2 thou/uL (0.11-0.59); #Neutrophils 9.4 thou/uL (1.40-6.50); %Basophils 0.5 % (0.0-1.0); %Eosinophils 2.7 % (0.0-10.0); %Lymphocytes 10.4 % (21.0-51.0); %Monocytes 9.5 % (0.0-10.0); Hemoglobin 12.4 g/dL (14.0-18.0); Mean Corpuscular HGB CONC 34.2 g/dL (32.0-36.0); Mean Corpuscular Hemoglobin 32.1 pg (27.0-31.0); Mean Corpuscular Volume 93.9 fL (78.0-98.0); Mean Platelet Volume 5.7 fL (7.4-10.4); Platelet Count 396 thou/uL (130-400); Red Blood Cell (RBC) Count 3.86 mill/uL (4.70-6.10); White Blood Cell (WBC) Count 12.3 thou/uL (4.8-10.8)
[2022-02-28 08:59] LABS: ALT (SGPT) 18 U/L (8-55); AST (SGOT) 20 U/L (5-34); Albumin 3.8 g/dL (3.4-4.8); Alkaline Phosphatase 78 U/L (40-110); Anion Gap 14 mmol/L (10-20); BUN (Urea Nitrogen) 15 mg/dL (8.4-25.7); Bilirubin, Total 0.7 mg/dL (0.2-1.2); Calc. Creatinine Clearance 0 mL/min (70-130); Calcium 9.7 mg/dL (7.8-10.44); Carbon Dioxide 24 mmol/L (23-31); Chloride 96 mmol/L (98-107); Estimated GFR 86; Globulin 3.1 g/dL (2.4-3.5); Glucose 121 mg/dL (83-110); Lipase 29 U/L (8-78); Potassium 4.1 mmol/L (3.5-5.1); Protein, Total 6.9 g/dL (5.8-8.1); Sodium 130 mmol/L (136-145)
[2022-02-28] MEDS ORDERED: Lidocaine Viscous Sol 2% 15 ml UD Cup ONE (09:12)
[2022-02-28] MEDS ORDERED: Benzocaine 20% Spray 60 ML CAN ONE ×3 (09:12→09:15)
[2022-02-28] MEDS ORDERED: Iopamidol-370 76% 500 ML 1 ML ONE (09:47)
[2022-02-28] MEDS ORDERED: MD-Gastroview 120 ML BOT ONE (10:08)
[2022-02-28] MEDS ORDERED: Ondansetron PF 4 MG/2 ML Vial SLOW IVP SCH (12:00)
[2022-02-28] MEDS ORDERED: Acetaminophen 650 MG Suppository PR PRN (12:05)
[2022-02-28] MEDS ORDERED: Ondansetron PF 4 MG/2 ML Vial IVP PRN (12:05)
[2022-02-28] MEDS: Sodium Chloride 0.9% 1,000 ML IV SCH (13:11)
[2022-02-28] MEDS ORDERED: Dextrose 50% Abboject 50 ML SYRINGE SLOW IVP PRN (13:33)
[2022-02-28] MEDS ORDERED: Insulin Regular 300 UNITS/3 ML VIAL SC PRN ×2 (13:33)
[2022-02-28] MEDS ORDERED: Dextrose 5% in Water 1,000 ML IV PRN (13:33)
[2022-02-28 16:36] VITALS: BMI 24.4
[2022-02-28] MEDS: Bisacodyl 5 MG TAB PO SCH (20:52)
[2022-03-01] MEDS: Sodium Chloride 0.9% 1,000 ML IV SCH (01:38)
[2022-03-01 05:57] LABS: #Basophils 0.1 thou/uL (0.0-0.2); #Eosinphils 0.5 thou/uL (0.0-0.7); #Lymphocytes 2.2 thou/uL (1.20-3.40); #Monocytes 1.3 thou/uL (0.11-0.59); #Neutrophils 8.6 thou/uL (1.40-6.50); %Basophils 0.4 % (0.0-1.0); %Eosinophils 4.3 % (0.0-10.0); %Lymphocytes 17.1 % (21.0-51.0); %Monocytes 10.1 % (0.0-10.0); Hemoglobin 12.7 g/dL (14.0-18.0); Mean Corpuscular HGB CONC 33.4 g/dL (32.0-36.0); Mean Corpuscular Hemoglobin 31.5 pg (27.0-31.0); Mean Corpuscular Volume 94.3 fL (78.0-98.0); Mean Platelet Volume 5.8 fL (7.4-10.4); Platelet Count 421 thou/uL (130-400); RBC Distribution Width 12.2 % (11.5-14.5); Red Blood Cell (RBC) Count 4.04 mill/uL (4.70-6.10); White Blood Cell (WBC) Count 12.7 thou/uL (4.8-10.8)
[2022-03-01 06:15] LABS: Anion Gap 15 mmol/L (10-20); BUN (Urea Nitrogen) 20 mg/dL (8.4-25.7); Calc. Creatinine Clearance 74 mL/min (70-130); Calcium 9.7 mg/dL (7.8-10.44); Carbon Dioxide 26 mmol/L (23-31); Chloride 101 mmol/L (98-107); Estimated GFR 86; Glucose 112 mg/dL (83-110); Magnesium 1.8 mg/dL (1.6-2.6); Potassium 3.6 mmol/L (3.5-5.1); Sodium 138 mmol/L (136-145)
[2022-03-01 06:16] LABS: Phosphorus 3.3 mg/dL (2.3-4.7)
[2022-03-01] MEDS: Bisacodyl 5 MG TAB PO SCH ×2 (07:52→20:25)
[2022-03-01] MEDS: Acetaminophen 325 MG TAB PO PRN (08:36)
[2022-03-01] MEDS ORDERED: NS 0.9% w/ 40 MEQ KCL 1,000 ML IV SCH (10:45)
[2022-03-01] MEDS ORDERED: Magnesium 2 GM/50 ML(in water) 2 GM in Premix Bag 1 BAG IVPB SCH (10:45)
[2022-03-01] MEDS: traMADol HCl 50 MG TAB PO PRN ×2 (10:57→20:24)
[2022-03-02] MEDS: traMADol HCl 50 MG TAB PO PRN (02:24)
[2022-03-02] MEDS ORDERED: Melatonin 3 MG TAB PO PRN (02:38)
[2022-03-02] MEDS: Acetaminophen 325 MG TAB PO PRN (04:14)
[2022-03-02 05:39] LABS: #Basophils 0.1 thou/uL (0.0-0.2); #Eosinphils 0.8 thou/uL (0.0-0.7); #Lymphocytes 2.6 thou/uL (1.20-3.40); #Monocytes 1.1 thou/uL (0.11-0.59); #Neutrophils 5.1 thou/uL (1.40-6.50); %Eosinophils 8.5 % (0.0-10.0); %Lymphocytes 26.6 % (21.0-51.0); %Monocytes 11.3 % (0.0-10.0); %Neutrophils 52.6 % (42.0-75.0); Hemoglobin 11.2 g/dL (14.0-18.0); Mean Corpuscular HGB CONC 34.2 g/dL (32.0-36.0); Mean Corpuscular Hemoglobin 32.2 pg (27.0-31.0); Mean Corpuscular Volume 94.2 fL (78.0-98.0); Mean Platelet Volume 5.5 fL (7.4-10.4); Platelet Count 391 thou/uL (130-400); Red Blood Cell (RBC) Count 3.48 mill/uL (4.70-6.10); White Blood Cell (WBC) Count 9.7 thou/uL (4.8-10.8)
[2022-03-02 05:44] LABS: Anion Gap 12 mmol/L (10-20); BUN (Urea Nitrogen) 15 mg/dL (8.4-25.7); Calc. Creatinine Clearance 91 mL/min (70-130); Calcium 8.7 mg/dL (7.8-10.44); Carbon Dioxide 24 mmol/L (23-31); Chloride 101 mmol/L (98-107); Estimated GFR 91; Glucose 100 mg/dL (83-110); Potassium 3.8 mmol/L (3.5-5.1); Sodium 133 mmol/L (136-145)
[2022-03-02] MEDS: Bisacodyl 5 MG TAB PO SCH (08:13)
[2022-03-02] MEDS ORDERED: Enoxaparin Sodium 40 MG/0.4 ML SYRINGE SC SCH (09:00)
[2022-03-02 09:03] VITALS: BP 124/69; TEMP 97.7
== END 2022-03-02 10:12 | disposition home or self-care (01) | DRG 390 ==
LOC: ERS 07:16 → SURG B 09:17
PROVIDERS: ADMIT Family Medicine; ATTEND Physician Assistant
PROC: 0D9670Z Drainage of Stomach with Drainage Device, Via Natural or Artificial Opening (ICD-10-PCS; principal; 2022-02-28)
DX: K56.7 Ileus, unspecified (principal); I10 Essential (primary) hypertension; E78.5 Hyperlipidemia, unspecified; K21.9 Gastro-esophageal reflux disease without esophagitis; I25.10 Atherosclerotic heart disease of native coronary artery without angina pectoris; E11.9 Type 2 diabetes mellitus without complications; M19.90 Unspecified osteoarthritis, unspecified site; Z96.659 Presence of unspecified artificial knee joint; N40.0 Benign prostatic hyperplasia without lower urinary tract symptoms; Z96.651 Presence of right artificial knee joint; Z96.653 Presence of artificial knee joint, bilateral; Z96.643 Presence of artificial hip joint, bilateral; Z79.899 Other long term (current) drug therapy; Z79.84 Long term (current) use of oral hypoglycemic drugs; Z79.82 Long term (current) use of aspirin; Z98.890 Other specified postprocedural states; Z87.891 Personal history of nicotine dependence
CPT/HCPCS: 36415; 36416; 74018; 74177; 74250; 80048; 80053; 83690; 83735; 84100; 84484; 85025; 93005; 93970; 96374; J1650; J2270; J2405; J2710; J3475; J3480; J7050; Q9963; Q9967

== ENCOUNTER 2022-03-05 13:16 | Inpatient (IN) | payer MEDICARE ==
[~2022-03-05 13:16] MED LIST changes: -Dexamethasone 20 MG/5 ML VIAL ONE; -EPHEDRINE 25 MG/5 ML SYRINGE ONE; -Glycopyrrolate 0.2 MG/ML 5 ML SYRINGE ONE; +Heparin 1,000 UNITS/ML VIAL ONE; -Lidocaine 1% PF 5 ML VIAL ONE; -Metoclopramide HCl 10 MG/2 ML VIAL ONE; -Ondansetron PF 4 MG/2 ML Vial ONE; -PHENYLEPHRINE-NS 100 MCG/ML 10 ML SYRINGE ONE; -PROPOFOL 200 MG/20 ML VIAL ONE; -Rocuronium Bromide 10 MG/ML (10ML VIAL) ONE
[2022-03-05] MEDS ORDERED: Iopamidol-370 76% 500 ML 1 ML ONE (14:08)
[2022-03-05 14:22] LABS: #Basophils 0.1 thou/uL (0.0-0.2); #Eosinphils 0.6 thou/uL (0.0-0.7); #Lymphocytes 2.9 thou/uL (1.20-3.40); #Monocytes 1.2 thou/uL (0.11-0.59); #Neutrophils 6.5 thou/uL (1.40-6.50); %Basophils 0.8 % (0.0-1.0); %Eosinophils 5.5 % (0.0-10.0); %Lymphocytes 25.7 % (21.0-51.0); %Monocytes 10.4 % (0.0-10.0); %Neutrophils 57.7 % (42.0-75.0); Hemoglobin 12.3 g/dL (14.0-18.0); Mean Corpuscular HGB CONC 34.4 g/dL (32.0-36.0); Mean Corpuscular Hemoglobin 31.8 pg (27.0-31.0); Mean Corpuscular Volume 92.4 fL (78.0-98.0); Mean Platelet Volume 5.7 fL (7.4-10.4); Platelet Count 461 thou/uL (130-400); RBC Distribution Width 11.9 % (11.5-14.5); Red Blood Cell (RBC) Count 3.87 mill/uL (4.70-6.10); White Blood Cell (WBC) Count 11.2 thou/uL (4.8-10.8)
[2022-03-05] MEDS ORDERED: Piperacillin/Tazobactam 3.375 GM VIAL ONE (14:29)
[2022-03-05 14:30] LABS: Bilirubin Negative (Negative); Blood, Urine Negative (Negative); Clarity Clear (Clear); Glucose, Urine (Dipstick) Normal (Negative); Ketone, Urine Negative (Negative); Leukocyte Negative Leu/uL (Negative); Nitrite Negative (Negative); Protein, Urine (Dipstick) Negative (Neg-Trace); Urobilinogen Normal mg/dL (Less than 2)
[2022-03-05] MEDS ORDERED: Vancomycin 1.5 GRAM/300 ML BAG 1.5 GM in Premix Bag 1 BAG IVPB SCH (14:30)
[2022-03-05 14:42] LABS: ALT (SGPT) 19 U/L (8-55); AST (SGOT) 19 U/L (5-34); Albumin 3.9 g/dL (3.4-4.8); Alkaline Phosphatase 110 U/L (40-110); Anion Gap 13 mmol/L (10-20); BUN (Urea Nitrogen) 10 mg/dL (8.4-25.7); Bilirubin, Total 0.7 mg/dL (0.2-1.2); Calc. Creatinine Clearance 0 mL/min (70-130); Calcium 9.7 mg/dL (7.8-10.44); Carbon Dioxide 25 mmol/L (23-31); Chloride 94 mmol/L (98-107); Estimated GFR 88; Globulin 3.1 g/dL (2.4-3.5); Glucose 126 mg/dL (83-110); Potassium 4.4 mmol/L (3.5-5.1); Sodium 128 mmol/L (136-145)
[2022-03-05] MEDS ORDERED: HYDROmorphone 0.5 MG/0.5 ML SYRINGE ONE (17:12)
[2022-03-05] MEDS ORDERED: HYDROcodone/Acetaminophen 5/325 mg Tablet PO PRN (17:38)
[2022-03-05] MEDS ORDERED: Dextrose 5% in Water 1,000 ML IV PRN (17:38)
[2022-03-05] MEDS ORDERED: Dextrose 50% Abboject 50 ML SYRINGE SLOW IVP PRN (17:38)
[2022-03-05] MEDS ORDERED: Bisacodyl 10 MG SUPP PR PRN (17:38)
[2022-03-05] MEDS ORDERED: HumaLOG 300 UNITS/3 ML VIAL SC PRN (17:38)
[2022-03-05] MEDS: Tamsulosin HCl 0.4 MG CAP PO SCH (20:45)
[2022-03-05] MEDS: Pramipexole Di-HCl 0.25 MG TAB PO SCH (20:45)
[2022-03-05] MEDS: Multivitamin W/ Minerals 1 TAB PO SCH (20:45)
[2022-03-05] MEDS: Atorvastatin Calcium 20 MG TAB PO SCH (20:45)
[2022-03-05] MEDS: Sodium Chloride 0.9% 1,000 ML IV SCH (20:45)
[2022-03-05] MEDS: Senokot S 8.6-50 MG TAB PO SCH (20:45)
[2022-03-05] MEDS: Aspirin 81 mg Enteric Coated Tablet PO SCH (20:45)
[2022-03-05] MEDS: Famotidine 20 MG TAB PO SCH (20:46)
[2022-03-05 20:58] LABS: SARS-CoV-2 NAA Rapid Test Not Detected (NotDetected)
[2022-03-05] MEDS ORDERED: Vancomycin 1 GM in Premix Bag 1 BAG IVPB SCH (21:00)
[2022-03-05 22:54] VITALS: BMI 28.0
[2022-03-05] MEDS: Piperacillin/Tazobactam 3.375 GM in Sodium Chloride 0.9% 100 ML IVPB SCH (23:24)
[2022-03-06] MEDS: Piperacillin/Tazobactam 3.375 GM in Sodium Chloride 0.9% 100 ML IVPB SCH ×3 (01:25→17:53)
[2022-03-06] MEDS: Melatonin 3 MG TAB PO PRN ×2 (01:26→21:59)
[2022-03-06] MEDS: Acetaminophen 325 MG TAB PO PRN ×2 (01:26→16:08)
[2022-03-06] MEDS: Vancomycin 1 GM in Premix Bag 1 BAG IVPB SCH ×2 (03:32→15:52)
[2022-03-06] MEDS: traMADol HCl 50 MG TAB PO PRN ×2 (04:52→21:51)
[2022-03-06 05:42] LABS: #Basophils 0.1 thou/uL (0.0-0.2); #Eosinphils 0.6 thou/uL (0.0-0.7); #Lymphocytes 2.8 thou/uL (1.20-3.40); #Monocytes 1.2 thou/uL (0.11-0.59); #Neutrophils 5.4 thou/uL (1.40-6.50); %Basophils 0.9 % (0.0-1.0); %Eosinophils 6.1 % (0.0-10.0); %Lymphocytes 27.7 % (21.0-51.0); %Monocytes 11.8 % (0.0-10.0); %Neutrophils 53.5 % (42.0-75.0); Hemoglobin 11.3 g/dL (14.0-18.0); Mean Corpuscular Hemoglobin 31.5 pg (27.0-31.0); Mean Corpuscular Volume 92.4 fL (78.0-98.0); Mean Platelet Volume 5.6 fL (7.4-10.4); Platelet Count 413 thou/uL (130-400); Red Blood Cell (RBC) Count 3.59 mill/uL (4.70-6.10); White Blood Cell (WBC) Count 10.2 thou/uL (4.8-10.8)
[2022-03-06 06:00] LABS: Anion Gap 15 mmol/L (10-20); BUN (Urea Nitrogen) 9 mg/dL (8.4-25.7); Calc. Creatinine Clearance 81 mL/min (70-130); Carbon Dioxide 20 mmol/L (23-31); Chloride 99 mmol/L (98-107); Potassium 3.9 mmol/L (3.5-5.1); Sodium 130 mmol/L (136-145)
[2022-03-06 06:01] LABS: Calcium 9.1 mg/dL (7.8-10.44); Estimated GFR 89; Glucose 95 mg/dL (83-110)
[2022-03-06] MEDS: Ondansetron PF 4 MG/2 ML Vial IVP PRN (06:22)
[2022-03-06] MEDS: metFORMIN 500 MG TAB PO SCH (08:57)
[2022-03-06] MEDS: Lisinopril 10 MG TAB PO SCH (08:57)
[2022-03-06] MEDS: Finasteride 5 MG TAB PO SCH (08:57)
[2022-03-06] MEDS: Amlodipine 10 MG TAB PO SCH (08:57)
[2022-03-06] MEDS: Aspirin 81 mg Enteric Coated Tablet PO SCH ×2 (08:57→21:50)
[2022-03-06] MEDS: Famotidine 20 MG TAB PO SCH ×2 (08:57→21:51)
[2022-03-06] MEDS: Polyethylene Glycol 3350 17 GM Packet PO SCH (08:58)
[2022-03-06] MEDS: Senokot S 8.6-50 MG TAB PO SCH (08:58)
[2022-03-06] MEDS ORDERED: FINASTERIDE 1 MG PO SCH (09:00)
[2022-03-06] MEDS ORDERED: Dexmedetomidine 200 MCG/2 ML VIAL ONE (09:12)
[2022-03-06] MEDS ORDERED: Fentanyl 100 MCG/2 ML VIAL ONE ×3 (09:12→11:43)
[2022-03-06] MEDS ORDERED: Midazolam HCl 2 mg/2 ml Vial ONE (09:12)
[2022-03-06] MEDS ORDERED: fentaNYL Citrate/PF 100 MCG/2 ML SYRINGE ONE (09:19)
[2022-03-06] MEDS ORDERED: Bupivacaine PF 0.5% 30 ML VIAL ONE (09:21)
[2022-03-06] MEDS ORDERED: Sodium Chloride 0.9% 100 ML ONE (09:24)
[2022-03-06] MEDS ORDERED: Piperacillin/Tazobactam 3.375 GM VIAL ONE (09:24)
[2022-03-06] MEDS ORDERED: PROPOFOL 200 MG/20 ML VIAL ONE (09:41)
[2022-03-06] MEDS ORDERED: Ondansetron PF 4 MG/2 ML Vial ONE (09:41)
[2022-03-06] MEDS ORDERED: Bupivacaine HCl 0.5%/Epinephrine 1:200,000/PF 30 ml Vial ONE (09:41)
[2022-03-06] MEDS ORDERED: Lidocaine 1% MPF 2 ML VIAL ONE (09:41)
[2022-03-06] MEDS ORDERED: Ketorolac Tromethamine 30 MG/ML VIAL ONE (09:41)
[2022-03-06] MEDS ORDERED: Ondansetron HCl/PF 4 MG/2 ML Vial IVP PRN (10:18)
[2022-03-06] MEDS ORDERED: Promethazine HCl 25 MG/ML VIAL IVPB PRN (10:18)
[2022-03-06] MEDS ORDERED: Promethazine HCl 25 MG/ML VIAL IM PRN (10:18)
[2022-03-06] MEDS ORDERED: HYDROcodone/Acetaminophen 10/325 mg Tablet PO PRN ×2 (10:58)
[2022-03-06] MEDS: Sodium Chloride 0.9% 1,000 ML IV SCH (13:13)
[2022-03-06] MEDS ORDERED: Electrolyte Replacement Protocol FS PRN (15:15)
[2022-03-06] MEDS ORDERED: Electrolyte Replacement Protocol 1 EACH FS SCH (15:15)
[2022-03-06] MEDS ORDERED: Senokot S 8.6-50 MG TAB PO SCH (21:00)
[2022-03-06] MEDS: Multivitamin W/ Minerals 1 TAB PO SCH (21:51)
[2022-03-06] MEDS: Saccharomyces boulardii 250 MG CAP PO SCH (21:51)
[2022-03-06] MEDS: Atorvastatin Calcium 20 MG TAB PO SCH (21:51)
[2022-03-06] MEDS: Tamsulosin HCl 0.4 MG CAP PO SCH (21:51)
[2022-03-06] MEDS: Pramipexole Di-HCl 0.25 MG TAB PO SCH (21:51)
[2022-03-07] MEDS: Acetaminophen 325 MG TAB PO PRN ×3 (00:52→21:11)
[2022-03-07] MEDS: Piperacillin/Tazobactam 3.375 GM in Sodium Chloride 0.9% 100 ML IVPB SCH ×3 (00:53→17:17)
[2022-03-07] MEDS: traMADol HCl 50 MG TAB PO PRN (04:39)
[2022-03-07] MEDS: Vancomycin 1 GM in Premix Bag 1 BAG IVPB SCH ×2 (04:40→14:38)
[2022-03-07] MEDS: Ondansetron PF 4 MG/2 ML Vial IVP PRN (04:42)
[2022-03-07 06:26] LABS: #Eosinphils 0.6 thou/uL (0.0-0.7); #Monocytes 1.4 thou/uL (0.11-0.59); %Basophils 0.3 % (0.0-1.0); %Eosinophils 5.2 % (0.0-10.0); %Lymphocytes 16.6 % (21.0-51.0); %Monocytes 11.5 % (0.0-10.0); %Neutrophils 66.3 % (42.0-75.0); Hemoglobin 11.8 g/dL (14.0-18.0); Mean Corpuscular Hemoglobin 32.1 pg (27.0-31.0); Mean Corpuscular Volume 94.3 fL (78.0-98.0); Platelet Count 423 thou/uL (130-400); RBC Distribution Width 12.1 % (11.5-14.5); Red Blood Cell (RBC) Count 3.68 mill/uL (4.70-6.10)
[2022-03-07] MEDS: Sodium Chloride 0.9% 1,000 ML IV SCH ×2 (06:28→21:12)
[2022-03-07 06:47] LABS: Anion Gap 13 mmol/L (10-20); BUN (Urea Nitrogen) 9 mg/dL (8.4-25.7); Calc. Creatinine Clearance 77 mL/min (70-130); Carbon Dioxide 24 mmol/L (23-31); Chloride 99 mmol/L (98-107); Estimated GFR 87; Glucose 96 mg/dL (83-110); Magnesium 1.7 mg/dL (1.6-2.6); Potassium 4.1 mmol/L (3.5-5.1); Sodium 132 mmol/L (136-145)
[2022-03-07] MEDS ORDERED: Magnesium 2 GM/50 ML(in water) 2 GM in Premix Bag 1 BAG IVPB SCH (08:00)
[2022-03-07] MEDS: Lisinopril 10 MG TAB PO SCH (08:47)
[2022-03-07] MEDS: Amlodipine 10 MG TAB PO SCH (08:47)
[2022-03-07] MEDS: Famotidine 20 MG TAB PO SCH ×2 (08:47→21:11)
[2022-03-07] MEDS: Finasteride 5 MG TAB PO SCH (08:47)
[2022-03-07] MEDS: Polyethylene Glycol 3350 17 GM Packet PO SCH (08:47)
[2022-03-07] MEDS: Aspirin 81 mg Enteric Coated Tablet PO SCH ×2 (08:47→21:11)
[2022-03-07] MEDS ORDERED: Magnesium Citrate 300 ML BOT PO SCH (09:15)
[2022-03-07] MEDS ORDERED: Cyclobenzaprine 10 MG TAB PO SCH (09:30)
[2022-03-07] MEDS ORDERED: Bisacodyl 10 MG SUPP PR SCH (09:45)
[2022-03-07 11:06] LABS: Vancomycin, Trough 17.2 ug/mL
[2022-03-07] MEDS: Ketorolac Tromethamine 30 MG/ML VIAL IVP PRN (12:32)
[2022-03-07] MEDS: Atorvastatin Calcium 20 MG TAB PO SCH (21:09)
[2022-03-07] MEDS: Pramipexole Di-HCl 0.25 MG TAB PO SCH (21:10)
[2022-03-07] MEDS: Melatonin 3 MG TAB PO PRN (21:10)
[2022-03-07] MEDS: Multivitamin W/ Minerals 1 TAB PO SCH (21:11)
[2022-03-07] MEDS: Tamsulosin HCl 0.4 MG CAP PO SCH (21:11)
[2022-03-07] MEDS: Saccharomyces boulardii 250 MG CAP PO SCH (21:11)
[2022-03-07] MEDS: Cyclobenzaprine 10 MG TAB PO PRN (21:51)
[2022-03-08] MEDS: Piperacillin/Tazobactam 3.375 GM in Sodium Chloride 0.9% 100 ML IVPB SCH ×2 (01:46→08:47)
[2022-03-08 02:04] LABS: #Basophils 0.1 thou/uL (0.0-0.2); #Lymphocytes 2.3 thou/uL (1.20-3.40); #Monocytes 1.4 thou/uL (0.11-0.59); %Basophils 0.7 % (0.0-1.0); %Eosinophils 8.1 % (0.0-10.0); %Lymphocytes 19.3 % (21.0-51.0); %Monocytes 11.9 % (0.0-10.0); Hemoglobin 10.9 g/dL (14.0-18.0); Mean Corpuscular Hemoglobin 33.9 pg (27.0-31.0); Mean Platelet Volume 5.6 fL (7.4-10.4); Platelet Count 349 thou/uL (130-400); RBC Distribution Width 12.1 % (11.5-14.5); Red Blood Cell (RBC) Count 3.23 mill/uL (4.70-6.10); White Blood Cell (WBC) Count 11.7 thou/uL (4.8-10.8)
[2022-03-08 02:20] LABS: Vancomycin, Trough 15.6 ug/mL
[2022-03-08 02:44] LABS: Anion Gap 13 mmol/L (10-20); BUN (Urea Nitrogen) 9 mg/dL (8.4-25.7); Calc. Creatinine Clearance 73 mL/min (70-130); Calcium 8.6 mg/dL (7.8-10.44); Carbon Dioxide 23 mmol/L (23-31); Chloride 96 mmol/L (98-107); Estimated GFR 86; Glucose 107 mg/dL (83-110); Potassium 3.9 mmol/L (3.5-5.1); Sodium 128 mmol/L (136-145)
[2022-03-08] MEDS: traMADol HCl 50 MG TAB PO PRN (04:22)
[2022-03-08] MEDS: Vancomycin 1 GM in Premix Bag 1 BAG IVPB SCH ×2 (05:34→15:00)
[2022-03-08] MEDS: Polyethylene Glycol 3350 17 GM Packet PO SCH (08:46)
[2022-03-08] MEDS: Lisinopril 10 MG TAB PO SCH (08:46)
[2022-03-08] MEDS: Aspirin 81 mg Enteric Coated Tablet PO SCH ×2 (08:46→21:06)
[2022-03-08] MEDS: Amlodipine 10 MG TAB PO SCH (08:46)
[2022-03-08] MEDS: Finasteride 5 MG TAB PO SCH (08:47)
[2022-03-08] MEDS: Famotidine 20 MG TAB PO SCH ×2 (08:47→21:05)
[2022-03-08 11:32] LABS: Potassium, Urine 19.4 mmol/L
[2022-03-08] MEDS: Ketorolac Tromethamine 30 MG/ML VIAL IVP PRN (12:29)
[2022-03-08] MEDS: Cyclobenzaprine 10 MG TAB PO PRN ×2 (14:59→21:05)
[2022-03-08] MEDS: metFORMIN 500 MG TAB PO SCH (16:23)
[2022-03-08] MEDS: Multivitamin W/ Minerals 1 TAB PO SCH (21:05)
[2022-03-08] MEDS: Saccharomyces boulardii 250 MG CAP PO SCH (21:05)
[2022-03-08] MEDS: Rifampin 300 MG CAP PO SCH (21:06)
[2022-03-08] MEDS: Tamsulosin HCl 0.4 MG CAP PO SCH (21:06)
[2022-03-08] MEDS: Pramipexole Di-HCl 0.25 MG TAB PO SCH (21:06)
[2022-03-08] MEDS: Atorvastatin Calcium 20 MG TAB PO SCH (21:06)
[2022-03-09] MEDS: Vancomycin 1 GM in Premix Bag 1 BAG IVPB SCH ×2 (01:56→15:53)
[2022-03-09] MEDS: traMADol HCl 50 MG TAB PO PRN ×2 (05:42→14:36)
[2022-03-09 06:18] LABS: #Basophils 0.1 thou/uL (0.0-0.2); #Eosinphils 0.9 thou/uL (0.0-0.7); #Lymphocytes 2.3 thou/uL (1.20-3.40); #Monocytes 1.6 thou/uL (0.11-0.59); #Neutrophils 7.3 thou/uL (1.40-6.50); %Basophils 0.5 % (0.0-1.0); %Lymphocytes 18.8 % (21.0-51.0); %Monocytes 13.4 % (0.0-10.0); %Neutrophils 60.3 % (42.0-75.0); Hemoglobin 11.6 g/dL (14.0-18.0); Mean Corpuscular HGB CONC 34.4 g/dL (32.0-36.0); Mean Corpuscular Hemoglobin 32.6 pg (27.0-31.0); Mean Corpuscular Volume 94.6 fL (78.0-98.0); Mean Platelet Volume 5.8 fL (7.4-10.4); Platelet Count 386 thou/uL (130-400); RBC Distribution Width 12.4 % (11.5-14.5); Red Blood Cell (RBC) Count 3.58 mill/uL (4.70-6.10); White Blood Cell (WBC) Count 12.1 thou/uL (4.8-10.8)
[2022-03-09 07:00] LABS: Anion Gap 15 mmol/L (10-20); BUN (Urea Nitrogen) 7 mg/dL (8.4-25.7); Calc. Creatinine Clearance 79 mL/min (70-130); Calcium 8.8 mg/dL (7.8-10.44); Carbon Dioxide 23 mmol/L (23-31); Chloride 97 mmol/L (98-107); Estimated GFR 88; Glucose 104 mg/dL (83-110); Potassium 3.8 mmol/L (3.5-5.1); Sodium 131 mmol/L (136-145)
[2022-03-09] MEDS: Polyethylene Glycol 3350 17 GM Packet PO SCH (09:06)
[2022-03-09] MEDS: Rifampin 300 MG CAP PO SCH ×2 (09:07→20:49)
[2022-03-09] MEDS: Aspirin 81 mg Enteric Coated Tablet PO SCH ×2 (09:07→20:44)
[2022-03-09] MEDS: metFORMIN 500 MG TAB PO SCH ×2 (09:07→18:13)
[2022-03-09] MEDS: Amlodipine 10 MG TAB PO SCH (09:08)
[2022-03-09] MEDS: Famotidine 20 MG TAB PO SCH ×2 (09:08→20:45)
[2022-03-09] MEDS: Finasteride 5 MG TAB PO SCH (09:08)
[2022-03-09] MEDS: Lisinopril 10 MG TAB PO SCH (09:10)
[2022-03-09] MEDS: Ketorolac Tromethamine 30 MG/ML VIAL IVP PRN (14:37)
[2022-03-09 14:55] LABS: Vancomycin, Trough 17.8 ug/mL
[2022-03-09] MEDS: Multivitamin W/ Minerals 1 TAB PO SCH (20:44)
[2022-03-09] MEDS: Tamsulosin HCl 0.4 MG CAP PO SCH (20:45)
[2022-03-09] MEDS: Saccharomyces boulardii 250 MG CAP PO SCH (20:45)
[2022-03-09] MEDS: Pramipexole Di-HCl 0.25 MG TAB PO SCH (20:45)
[2022-03-09] MEDS: Atorvastatin Calcium 20 MG TAB PO SCH (20:45)
[2022-03-10] MEDS: Vancomycin 1 GM in Premix Bag 1 BAG IVPB SCH ×2 (03:04→18:51)
[2022-03-10 06:31] LABS: Anion Gap 13 mmol/L (10-20); BUN (Urea Nitrogen) 12 mg/dL (8.4-25.7); Calc. Creatinine Clearance 68 mL/min (70-130); Calcium 9.1 mg/dL (7.8-10.44); Carbon Dioxide 24 mmol/L (23-31); Chloride 96 mmol/L (98-107); Estimated GFR 82; Glucose 82 mg/dL (83-110); Sodium 129 mmol/L (136-145)
[2022-03-10] MEDS: Amlodipine 10 MG TAB PO SCH (08:46)
[2022-03-10] MEDS: Lisinopril 10 MG TAB PO SCH (08:46)
[2022-03-10] MEDS: Aspirin 81 mg Enteric Coated Tablet PO SCH ×2 (08:46→20:39)
[2022-03-10] MEDS: metFORMIN 500 MG TAB PO SCH ×2 (08:46→18:50)
[2022-03-10] MEDS: Finasteride 5 MG TAB PO SCH (08:47)
[2022-03-10] MEDS: Famotidine 20 MG TAB PO SCH ×2 (08:47→20:39)
[2022-03-10] MEDS: Rifampin 300 MG CAP PO SCH ×2 (08:47→20:38)
[2022-03-10] MEDS: Polyethylene Glycol 3350 17 GM Packet PO SCH (08:48)
[2022-03-10] MEDS ORDERED: HYDROcodone/Acetaminophen 10/325 mg Tablet PO PRN ×2 (19:03→19:04)
[2022-03-10] MEDS: Multivitamin W/ Minerals 1 TAB PO SCH (20:38)
[2022-03-10] MEDS: Pramipexole Di-HCl 0.25 MG TAB PO SCH (20:38)
[2022-03-10] MEDS: Atorvastatin Calcium 20 MG TAB PO SCH (20:38)
[2022-03-10] MEDS: Cyclobenzaprine 10 MG TAB PO PRN (20:38)
[2022-03-10] MEDS: Tamsulosin HCl 0.4 MG CAP PO SCH (20:39)
[2022-03-10] MEDS: Saccharomyces boulardii 250 MG CAP PO SCH (20:39)
[2022-03-10] MEDS: Ketorolac Tromethamine 30 MG/ML VIAL IVP PRN (22:35)
[2022-03-10] MEDS: Melatonin 3 MG TAB PO PRN (22:40)
[2022-03-11] MEDS: Ondansetron PF 4 MG/2 ML Vial IVP PRN (01:02)
[2022-03-11] MEDS ORDERED: Vancomycin 1 GM in Premix Bag 1 BAG IVPB SCH (06:00)
[2022-03-11 07:35] LABS: Vancomycin, Trough 23.2 ug/mL
[2022-03-11 07:39] LABS: Anion Gap 18 mmol/L (10-20); BUN (Urea Nitrogen) 15 mg/dL (8.4-25.7); Calc. Creatinine Clearance 64 mL/min (70-130); Calcium 9.3 mg/dL (7.8-10.44); Carbon Dioxide 23 mmol/L (23-31); Chloride 94 mmol/L (98-107); Estimated GFR 75; Glucose 80 mg/dL (83-110); Potassium 4.1 mmol/L (3.5-5.1); Sodium 131 mmol/L (136-145)
[2022-03-11] MEDS: Polyethylene Glycol 3350 17 GM Packet PO SCH (08:51)
[2022-03-11] MEDS: Amlodipine 10 MG TAB PO SCH (08:52)
[2022-03-11] MEDS: Finasteride 5 MG TAB PO SCH (08:52)
[2022-03-11] MEDS: Famotidine 20 MG TAB PO SCH (08:53)
[2022-03-11] MEDS: Rifampin 300 MG CAP PO SCH (08:53)
[2022-03-11] MEDS: Aspirin 81 mg Enteric Coated Tablet PO SCH (08:53)
[2022-03-11] MEDS: Lisinopril 10 MG TAB PO SCH (08:53)
[2022-03-11] MEDS: metFORMIN 500 MG TAB PO SCH ×2 (08:53→17:19)
[2022-03-11] MEDS ORDERED: Vancomycin HCl 750 MG in Sodium Chloride 0.9% 250 ML 250 ML IVPB SCH ×2 (09:00→15:15)
[2022-03-11 12:01] VITALS: TEMP 97.8
[2022-03-11 16:09] VITALS: BP 104/64
== END 2022-03-11 15:15 | disposition home health service (06) | DRG 464 ==
LOC: ERS 13:16 → SURG B 17:25
PROVIDERS: ADMIT Internal Medicine; ATTEND Family Medicine
PROC: 0S9D3ZX Drainage of Left Knee Joint, Percutaneous Approach, Diagnostic (ICD-10-PCS; 2022-03-05)
PROC: 0SPD09Z Removal of Liner from Left Knee Joint, Open Approach (ICD-10-PCS; principal; 2022-03-06)
PROC: 0SWW0JZ Revision of Synthetic Substitute in Left Knee Joint, Tibial Surface, Open Approach (ICD-10-PCS; 2022-03-06)
PROC: 02HV33Z Insertion of Infusion Device into Superior Vena Cava, Percutaneous Approach (ICD-10-PCS; 2022-03-06)
PROC: B548ZZA Ultrasonography of Superior Vena Cava, Guidance (ICD-10-PCS; 2022-03-06)
DX: T84.54XA Infection and inflammatory reaction due to internal left knee prosthesis, initial encounter (principal); E87.1 Hypo-osmolality and hyponatremia; M00.9 Pyogenic arthritis, unspecified; I10 Essential (primary) hypertension; E78.5 Hyperlipidemia, unspecified; E11.9 Type 2 diabetes mellitus without complications; Z96.651 Presence of right artificial knee joint; Z96.642 Presence of left artificial hip joint; Z96.652 Presence of left artificial knee joint; K42.9 Umbilical hernia without obstruction or gangrene; N40.0 Benign prostatic hyperplasia without lower urinary tract symptoms; D64.9 Anemia, unspecified; K21.9 Gastro-esophageal reflux disease without esophagitis; K59.00 Constipation, unspecified; Z20.822 Contact with and (suspected) exposure to COVID-19; Y83.8 Other surgical procedures as the cause of abnormal reaction of the patient, or of later complication, without mention of misadventure at the time of the procedure; I25.2 Old myocardial infarction; Z98.890 Other specified postprocedural states; Z79.82 Long term (current) use of aspirin; Z79.899 Other long term (current) drug therapy
CPT/HCPCS: 20611; 36415; 36416; 36569; 74177; 80048; 80053; 80202; 81003; 82436; 83605; 83735; 83930; 83935; 84133; 84300; 84443; 85025; 86140; 87040; 87070; 87077; 87186; 87205; 93005; 96365; 96366; 96367; 96375; C1713; C1751; J1170; J1644; J1885; J2250; J2405; J2543; J2704; J3010; J3370; J3475; J3490; J7050; Q9967; S0020; U0002

== ENCOUNTER 2022-04-16 10:14 | Emergency (ER) | payer MEDICARE | END 2022-04-16 11:15 | disposition home or self-care (01) | LOC: ERS 10:14 | DX: T82.898A Other specified complication of vascular prosthetic devices, implants and grafts, initial encounter (principal); I10 Essential (primary) hypertension; E11.9 Type 2 diabetes mellitus without complications | CPT/HCPCS: 99283 ==

== ENCOUNTER 2022-12-25 07:43 | Outpatient (CLI) | payer MEDICARE ==
[2022-12-25 09:58] LABS: Hemoglobin 12.3 g/dL (13.5-17.5); Mean Corpuscular HGB CONC 33.1 g/dL (32.0-36.0); Mean Corpuscular Hemoglobin 30.5 pg (27.0-33.0); Mean Corpuscular Volume 92.3 fl (81.2-95.1); Mean Platelet Volume 8.8 fl (7.4-10.4); Platelet Count 249 10x3/uL (150-450); RBC Distribution Width 13.8 % (11.5-14.5); Red Blood Cell (RBC) Count 4.03 10x6/uL (4.32-5.72); White Blood Cell (WBC) Count 7.2 10x3/uL (3.5-10.5)
[2022-12-25 10:25] LABS: Anion Gap 15 mmol/L (10-20); BUN (Urea Nitrogen) 24 mg/dL (8.4-25.7); Calc. Creatinine Clearance 0 mL/min (70-130); Calcium 9.7 mg/dL (7.8-10.44); Carbon Dioxide 23 mmol/L (23-31); Chloride 100 mmol/L (98-107); Estimated GFR 72; Glucose 90 mg/dL (83-110); Potassium 4.6 mmol/L (3.5-5.1); Sodium 133 mmol/L (136-145)
== END 2022-12-25 07:44 | disposition home or self-care (01) ==
LOC: LABBT 07:43
PROVIDERS: ATTEND Neurological Surgery
DX: Z01.818 Encounter for other preprocedural examination (principal); M51.26 Other intervertebral disc displacement, lumbar region
CPT/HCPCS: 80048; 85027; 93005; 93010

== ENCOUNTER 2023-06-03 17:28 | Inpatient (IN) | payer MEDICARE ==
[~2023-06-03 17:28] MED LIST changes: -Heparin 1,000 UNITS/ML VIAL ONE; +Iopamidol-370 76% 500 ML MDV (1 ML CHARGE) ONE
[2023-06-03] MEDS ORDERED: Rocuronium Bromide 10 MG/ML (10ML VIAL) ONE (17:38)
[2023-06-03 17:55] LABS: #Basophils 0.1 thou/uL (0.0-0.2); #Eosinphils 0.4 thou/uL (0.0-0.7); #Monocytes 1.3 thou/uL (0.11-0.59); #Neutrophils 5.9 thou/uL (1.40-6.50); %Basophils 0.6 % (0.0-1.0); %Eosinophils 3.3 % (0.0-10.0); %Monocytes 11.8 % (0.0-10.0); %Neutrophils 51.9 % (42.0-75.0); Hematocrit 37.5 % (42.0-52.0); Hemoglobin 12.4 g/dL (14.0-18.0); Mean Corpuscular HGB CONC 33.1 g/dL (32.0-36.0); Mean Corpuscular Hemoglobin 31.2 pg (27.0-31.0); Mean Corpuscular Volume 94.2 fl (78.0-98.0); Mean Platelet Volume 8.5 fL (7.4-10.4); Platelet Count 310 10x3/uL (130-400); RBC Distribution Width 12.9 % (11.5-14.5); Red Blood Cell (RBC) Count 3.98 mill/uL (4.70-6.10); White Blood Cell (WBC) Count 11.3 10x3/uL (4.8-10.8)
[2023-06-03] MEDS ORDERED: Fentanyl CADD 100 ML IV SCH ×2 (18:00→19:30)
[2023-06-03 18:01] LABS: Bacteria/HPF None Seen HPF (None Seen); Bilirubin Negative (Negative); Blood, Urine Negative (Negative); CAUTI Indications for Culture Alt mental st,lethar; Clarity Clear (Clear); Glucose, Urine (Dipstick) Normal (Negative); Ketone, Urine Negative (Negative); Leukocyte Negative Leu/uL (Negative); Nitrite Negative (Negative); Protein, Urine (Dipstick) Negative (Neg-Trace); RBC/HPF 0-3 HPF (0-3); Specific Gravity, Urine 1.012 (1.002-1.036); Squamous Epithelial None Seen HPF (0-3); Urobilinogen Normal mg/dL (Less than 2); WBC/HPF 0-3 HPF (0-3)
[2023-06-03 18:02] LABS: Urine Culture Reflex No No
[2023-06-03 18:04] LABS: PTT 29.4 sec (22.9-36.1); Prothrombin Time 13.6 sec (12.0-14.7)
[2023-06-03 18:08] LABS: Amphetamine Not Detected (NotDetected); Barbiturates Screen Not Detected (NotDetected); Benzodiazepine Screen Not Detected (NotDetected); Cocaine Metabolite Screen Not Detected (NotDetected); Methadone Not Detected (NotDetected); Methamphetamine Not Detected (NotDetected); Opiate Screen Not Detected (NotDetected); Oxycodone Screen Not Detected (NotDetected); Phencyclidine (PCP) Not Detected (NotDetected); THC/Cannabinoid Screen Not Detected (NotDetected); Tricyclic Screen Not Detected (NotDetected)
[2023-06-03 18:09] LABS: Actual Bicarbonate (HCO3a) 18.6 mEq/L (22-28); Analyzer IN Cardio ER; Base Excess (BEa) -7.3 mEq/L (-2.0 to +3.0); CO2 Tension 39.4 mmHg (35.0-45.0); Calcium, Ionized (arterial) 1.19 mmol/L (1.12-1.30); Carboxyhemoglobin (COHb) 0.3 gm% (0.0-3.0); Hematocrit-ABG 34 % (42.0-52.0); Hemoglobin (Hb) 11.5 g/dL (14.0-18.0); O2 Tension (PaO2), arterial 600.4 mmHg (> 60.0); Potassium - ABG Lab 3.91 mmol/L (3.70-5.30); pH, Arterial 7.293 (7.35-7.45)
[2023-06-03 18:18] LABS: ALT (SGPT) 14 U/L (8-55); AST (SGOT) 17 U/L (5-34); Acetaminophen Less than 10 mcg/mL (10.0-30.0); Albumin 4.3 g/dL (3.4-4.8); Alcohol Less than 10.0 mg/dL (Less than 10); Alkaline Phosphatase 107 U/L (40-110); Anion Gap 18 mmol/L (10-20); BUN (Urea Nitrogen) 21 mg/dL (8.4-25.7); Bilirubin, Total 0.3 mg/dL (0.2-1.2); CK (CPK) 121 U/L (30-200); Calc. Creatinine Clearance 0 mL/min (70-130); Calcium 9.1 mg/dL (7.8-10.44); Carbon Dioxide 19 mmol/L (23-31); Chloride 100 mmol/L (98-107); Estimated GFR 59; Globulin 2.9 g/dL (2.4-3.5); Glucose 155 mg/dL (83-110); Potassium 3.8 mmol/L (3.5-5.1); Protein, Total 7.2 g/dL (5.8-8.1); Salicylate Less than 8.0 mg/dL (15.0-30.0); Sodium 133 mmol/L (136-145)
[2023-06-03 18:27] LABS: Troponin I Less than 0.010 ng/mL (< 0.028)
[2023-06-03] MEDS ORDERED: Sodium Chloride 0.9% 100 ML ONE (18:47)
[2023-06-03] MEDS ORDERED: Cefepime 2 GM VIAL ONE (18:47)
[2023-06-03] MEDS ORDERED: Vancomycin 1 GM/200 ML (FROZEN) BAG ONE (18:47)
[2023-06-03] MEDS ORDERED: levETIRAcetam 500 MG/5 ML VIAL ONE (18:47)
[2023-06-03] MEDS ORDERED: Ventilator Sedation Protocol FS SCH (19:26)
[2023-06-03] MEDS ORDERED: Propofol BOLUS 1,000 MG/100 ML VIAL IV PRN (19:30)
[2023-06-03] MEDS ORDERED: Lorazepam 2 MG/ML VIAL SLOW IVP PRN (19:30)
[2023-06-03] MEDS ORDERED: DISCONTINUE PREVIOUS NARCOTIC PAIN MEDICATIONS AND BENZODIAZEPINES FS SCH (19:30)
[2023-06-03] MEDS ORDERED: Morphine 2 MG/ML VIAL SLOW IVP PRN (19:30)
[2023-06-03] MEDS ORDERED: Fentanyl BOLUS 250 ML IVPB PRN (19:30)
[2023-06-03] MEDS ORDERED: Propofol 1,000 MG/100 ML VIAL IV PRN (19:30)
[2023-06-03] MEDS ORDERED: Ondansetron PF 4 MG/2 ML Vial IVP PRN (19:47)
[2023-06-03] MEDS ORDERED: Dextrose 5% in Water 1,000 ML IV PRN (19:50)
[2023-06-03] MEDS ORDERED: Dextrose 50% Abboject 50 ML SYRINGE SLOW IVP PRN (19:50)
[2023-06-03] MEDS ORDERED: Glucagon 1 MG/ML KIT IM PRN (19:50)
[2023-06-03] MEDS ORDERED: HumaLOG 300 UNITS/3 ML VIAL SC PRN ×2 (19:50)
[2023-06-03] MEDS ORDERED: Electrolyte Replacement Protocol 1 EACH FS SCH (20:22)
[2023-06-03] MEDS ORDERED: Famotidine 20 MG TAB PER TUBE SCH (21:00)
[2023-06-03] MEDS: Sodium Chloride 0.9% 1,000 ML IV SCH (21:11)
[2023-06-03 21:14] LABS: Lactic Acid 1.6 mmol/L (0.5-2.2)
[2023-06-04] MEDS ORDERED: Lorazepam 2 MG/ML VIAL SLOW IVP PRN (02:33)
[2023-06-04 04:08] LABS: #Neutrophils 7.5 thou/uL (1.40-6.50); %Basophils 0.2 % (0.0-1.0); %Eosinophils 0.2 % (0.0-10.0); %Lymphocytes 10.6 % (21.0-51.0); %Monocytes 10.7 % (0.0-10.0); Hematocrit 31.2 % (42.0-52.0); Hemoglobin 10.5 g/dL (14.0-18.0); Mean Corpuscular HGB CONC 33.7 g/dL (32.0-36.0); Mean Corpuscular Hemoglobin 31.3 pg (27.0-31.0); Mean Corpuscular Volume 93.1 fl (78.0-98.0); Mean Platelet Volume 8.3 fL (7.4-10.4); Platelet Count 243 10x3/uL (130-400); RBC Distribution Width 12.8 % (11.5-14.5); Red Blood Cell (RBC) Count 3.35 mill/uL (4.70-6.10); White Blood Cell (WBC) Count 9.7 10x3/uL (4.8-10.8)
[2023-06-04 04:29] LABS: Lactic Acid 1.1 mmol/L (0.5-2.2)
[2023-06-04 04:34] LABS: ALT (SGPT) 11 U/L (8-55); AST (SGOT) 13 U/L (5-34); Albumin 3.5 g/dL (3.4-4.8); Alkaline Phosphatase 77 U/L (40-110); Anion Gap 12 mmol/L (10-20); BUN (Urea Nitrogen) 14 mg/dL (8.4-25.7); Bilirubin, Total 0.5 mg/dL (0.2-1.2); CK (CPK) 85 U/L (30-200); Calc. Creatinine Clearance 73 mL/min (70-130); Calcium 8.3 mg/dL (7.8-10.44); Carbon Dioxide 21 mmol/L (23-31); Chloride 101 mmol/L (98-107); Estimated GFR 87; Globulin 2.1 g/dL (2.4-3.5); Glucose 122 mg/dL (83-110); Potassium 3.8 mmol/L (3.5-5.1); Protein, Total 5.6 g/dL (5.8-8.1); Sodium 130 mmol/L (136-145)
[2023-06-04 06:46] LABS: Actual Bicarbonate (HCO3a) 22.1 mEq/L (22-28); CO2 Tension 35.3 mmHg (35.0-45.0); Calcium, Ionized (arterial) 1.15 mmol/L (1.12-1.30); Carboxyhemoglobin (COHb) 0.3 gm% (0.0-3.0); Hematocrit-ABG 32 % (42.0-52.0); pH, Arterial 7.415 (7.35-7.45)
[2023-06-04 07:20] LABS: Puncture Site RBA
[2023-06-04] MEDS: levETIRAcetam 500 MG/5 ML VIAL SLOW IVP SCH ×2 (08:41→21:14)
[2023-06-04] MEDS: Famotidine/PF 20 mg/2ml Vial SLOW IVP SCH ×2 (08:41→21:14)
[2023-06-04] MEDS: Sodium Chloride 0.9% 1,000 ML IV SCH ×2 (08:51→23:30)
[2023-06-05 04:14] LABS: #Basophils 0.1 thou/uL (0.0-0.2); #Eosinphils 0.1 thou/uL (0.0-0.7); #Monocytes 1.5 thou/uL (0.11-0.59); #Neutrophils 7.8 thou/uL (1.40-6.50); %Basophils 0.4 % (0.0-1.0); %Lymphocytes 14.9 % (21.0-51.0); %Monocytes 13.8 % (0.0-10.0); %Neutrophils 69.5 % (42.0-75.0); Hematocrit 35.3 % (42.0-52.0); Mean Corpuscular Hemoglobin 31.3 pg (27.0-31.0); Mean Corpuscular Volume 91.9 fl (78.0-98.0); Mean Platelet Volume 8.4 fL (7.4-10.4); Platelet Count 274 10x3/uL (130-400); RBC Distribution Width 12.6 % (11.5-14.5); Red Blood Cell (RBC) Count 3.84 mill/uL (4.70-6.10); White Blood Cell (WBC) Count 11.2 10x3/uL (4.8-10.8)
[2023-06-05 04:55] LABS: ALT (SGPT) 10 U/L (8-55); AST (SGOT) 16 U/L (5-34); Albumin 3.8 g/dL (3.4-4.8); Alkaline Phosphatase 82 U/L (40-110); Anion Gap 12 mmol/L (10-20); BUN (Urea Nitrogen) 9 mg/dL (8.4-25.7); Bilirubin, Total 1.1 mg/dL (0.2-1.2); Calc. Creatinine Clearance 76 mL/min (70-130); Calcium 9.1 mg/dL (7.8-10.44); Carbon Dioxide 22 mmol/L (23-31); Chloride 97 mmol/L (98-107); Estimated GFR 88; Globulin 2.6 g/dL (2.4-3.5); Glucose 93 mg/dL (83-110); Potassium 3.8 mmol/L (3.5-5.1); Protein, Total 6.4 g/dL (5.8-8.1); Sodium 127 mmol/L (136-145)
[2023-06-05] MEDS: Sodium Chloride 0.9% 1,000 ML IV SCH ×3 (08:00→20:58)
[2023-06-05] MEDS: levETIRAcetam 500 MG/5 ML VIAL SLOW IVP SCH ×2 (09:00→20:59)
[2023-06-05] MEDS: Famotidine/PF 20 mg/2ml Vial SLOW IVP SCH ×2 (09:00→20:58)
[2023-06-05 16:42] LABS: Free T4 (Free Thyroxine) 1.2 ng/dL (0.70-1.48)
[2023-06-05 16:43] LABS: Thyroid Stimulating Hormone 0.5468 uIU/mL (0.35-4.94)
[2023-06-06 04:27] LABS: #Eosinphils 0.1 thou/uL (0.0-0.7); #Monocytes 1.6 thou/uL (0.11-0.59); #Neutrophils 6.4 thou/uL (1.40-6.50); %Basophils 0.4 % (0.0-1.0); %Eosinophils 1.4 % (0.0-10.0); %Lymphocytes 17.7 % (21.0-51.0); %Monocytes 16.3 % (0.0-10.0); %Neutrophils 63.9 % (42.0-75.0); Hematocrit 35.8 % (42.0-52.0); Hemoglobin 12.6 g/dL (14.0-18.0); Mean Corpuscular HGB CONC 35.2 g/dL (32.0-36.0); Mean Corpuscular Hemoglobin 31.4 pg (27.0-31.0); Mean Corpuscular Volume 89.3 fl (78.0-98.0); Mean Platelet Volume 8.5 fL (7.4-10.4); Platelet Count 279 10x3/uL (130-400); RBC Distribution Width 12.2 % (11.5-14.5); Red Blood Cell (RBC) Count 4.01 mill/uL (4.70-6.10)
[2023-06-06 04:53] LABS: ALT (SGPT) 12 U/L (8-55); AST (SGOT) 16 U/L (5-34); Albumin 3.8 g/dL (3.4-4.8); Alkaline Phosphatase 77 U/L (40-110); Anion Gap 14 mmol/L (10-20); BUN (Urea Nitrogen) 13 mg/dL (8.4-25.7); Bilirubin, Total 1.3 mg/dL (0.2-1.2); Calc. Creatinine Clearance 77 mL/min (70-130); Calcium 9.3 mg/dL (7.8-10.44); Carbon Dioxide 19 mmol/L (23-31); Chloride 97 mmol/L (98-107); Estimated GFR 90; Globulin 2.7 g/dL (2.4-3.5); Glucose 79 mg/dL (83-110); Potassium 3.5 mmol/L (3.5-5.1); Protein, Total 6.5 g/dL (5.8-8.1); Sodium 126 mmol/L (136-145)
[2023-06-06] MEDS: Sodium Chloride 0.9% 1,000 ML IV SCH (05:31)
[2023-06-06] MEDS: Potassium Chloride 20 MEQ in Premix 1 BAG IVPB SCH ×2 (08:12→10:08)
[2023-06-06] MEDS: levETIRAcetam 500 MG/5 ML VIAL SLOW IVP SCH ×3 (08:12→21:54)
[2023-06-06] MEDS: Famotidine/PF 20 mg/2ml Vial SLOW IVP SCH ×2 (08:13→21:55)
[2023-06-06] MEDS ORDERED: Furosemide 20 MG/2 ML VIAL SLOW IVP SCH (08:45)
[2023-06-06] MEDS ORDERED: levETIRAcetam 500 MG/5 ML VIAL SLOW IVP SCH (10:00)
[2023-06-06] MEDS: Docusate 100 MG CAP PO SCH (12:59)
[2023-06-06 17:56] LABS: Anion Gap 14 mmol/L (10-20); BUN (Urea Nitrogen) 20 mg/dL (8.4-25.7); Calc. Creatinine Clearance 72 mL/min (70-130); Calcium 9.5 mg/dL (7.8-10.44); Carbon Dioxide 21 mmol/L (23-31); Chloride 95 mmol/L (98-107); Estimated GFR 88; Glucose 99 mg/dL (83-110); Potassium 3.6 mmol/L (3.5-5.1); Sodium 126 mmol/L (136-145)
[2023-06-06] MEDS ORDERED: Non-Formulary Item 1 EACH (Pravastatin Sodium [Pravastatin Sodium] 80 MG Tablet) PO SCH (21:00)
[2023-06-06] MEDS ORDERED: Non-Formulary Item 1 EACH (Timolol Maleate/Pf [Timolol Maleate 0.5% Eye Drop] 1 EACH Drop L EYE SCH (21:00)
[2023-06-06] MEDS: Timolol 0.5% Ophth Soln 5 ml Bottle L EYE SCH (21:54)
[2023-06-06] MEDS: Tamsulosin HCl 0.4 MG CAP PO SCH (21:55)
[2023-06-06] MEDS: Aspirin 81 mg Enteric Coated Tablet PO SCH (21:55)
[2023-06-06] MEDS: Atorvastatin Calcium 20 MG TAB PO SCH (21:55)
[2023-06-07 04:46] LABS: Anion Gap 12 mmol/L (10-20); BUN (Urea Nitrogen) 23 mg/dL (8.4-25.7); Calc. Creatinine Clearance 65 mL/min (70-130); Calcium 9.6 mg/dL (7.8-10.44); Carbon Dioxide 24 mmol/L (23-31); Chloride 94 mmol/L (98-107); Estimated GFR 85; Glucose 110 mg/dL (83-110); Potassium 3.6 mmol/L (3.5-5.1); Sodium 126 mmol/L (136-145)
[2023-06-07] MEDS ORDERED: FINASTERIDE 1 MG PO SCH (09:00)
[2023-06-07] MEDS ORDERED: FINASTERIDE 1 MG DT SCH (09:00)
[2023-06-07] MEDS: Amlodipine 10 MG TAB PO SCH (11:25)
[2023-06-07] MEDS: Isosorbide Mononitrate 30 MG ER.TAB PO SCH (11:25)
[2023-06-07] MEDS: Docusate 100 MG CAP PO SCH (11:26)
[2023-06-07] MEDS: Sodium Chloride 1 GM TAB PO SCH ×3 (11:26→21:39)
[2023-06-07] MEDS: Timolol 0.5% Ophth Soln 5 ml Bottle L EYE SCH ×2 (11:27→21:40)
[2023-06-07] MEDS: levETIRAcetam 500 MG/5 ML VIAL SLOW IVP SCH ×2 (11:27→21:43)
[2023-06-07] MEDS: CO Q-10 CAPSULE 100 MG PO SCH (11:28)
[2023-06-07] MEDS: Famotidine/PF 20 mg/2ml Vial SLOW IVP SCH ×2 (11:28→21:39)
[2023-06-07] MEDS: Clopidogrel Bisulfate 75 MG TAB PO SCH (11:33)
[2023-06-07] MEDS: Acetaminophen 325 MG TAB PO PRN (15:22)
[2023-06-07] MEDS: Tamsulosin HCl 0.4 MG CAP PO SCH (21:39)
[2023-06-07] MEDS: Atorvastatin Calcium 20 MG TAB PO SCH (21:39)
[2023-06-07] MEDS: Aspirin 81 mg Enteric Coated Tablet PO SCH (21:39)
[2023-06-08 05:27] LABS: #Basophils 0.1 thou/uL (0.0-0.2); #Eosinphils 0.2 thou/uL (0.0-0.7); #Neutrophils 4.4 thou/uL (1.40-6.50); %Basophils 0.7 % (0.0-1.0); %Eosinophils 3.1 % (0.0-10.0); %Lymphocytes 24.6 % (21.0-51.0); %Monocytes 13.1 % (0.0-10.0); Hematocrit 34.2 % (42.0-52.0); Hemoglobin 11.8 g/dL (14.0-18.0); Mean Corpuscular HGB CONC 34.5 g/dL (32.0-36.0); Mean Corpuscular Hemoglobin 31.1 pg (27.0-31.0); Mean Corpuscular Volume 90.2 fl (78.0-98.0); Mean Platelet Volume 8.7 fL (7.4-10.4); Platelet Count 304 10x3/uL (130-400); RBC Distribution Width 12.4 % (11.5-14.5); Red Blood Cell (RBC) Count 3.79 mill/uL (4.70-6.10); White Blood Cell (WBC) Count 7.5 10x3/uL (4.8-10.8)
[2023-06-08 05:50] LABS: Anion Gap 15 mmol/L (10-20); BUN (Urea Nitrogen) 25 mg/dL (8.4-25.7); Calc. Creatinine Clearance 69 mL/min (70-130); Calcium 9.6 mg/dL (7.8-10.44); Carbon Dioxide 23 mmol/L (23-31); Chloride 99 mmol/L (98-107); Estimated GFR 86; Glucose 104 mg/dL (83-110); Potassium 3.5 mmol/L (3.5-5.1); Sodium 133 mmol/L (136-145)
[2023-06-08] MEDS ORDERED: Potassium Chloride 20 MEQ TAB PO SCH (09:15)
[2023-06-08] MEDS: Timolol 0.5% Ophth Soln 5 ml Bottle L EYE SCH ×2 (12:04→21:03)
[2023-06-08] MEDS: levETIRAcetam 500 MG TAB PO SCH ×2 (12:06→21:01)
[2023-06-08] MEDS: Docusate 100 MG CAP PO SCH (12:07)
[2023-06-08] MEDS: CO Q-10 CAPSULE 100 MG PO SCH (12:07)
[2023-06-08] MEDS: Clopidogrel Bisulfate 75 MG TAB PO SCH (12:07)
[2023-06-08] MEDS: Amlodipine 10 MG TAB PO SCH (12:08)
[2023-06-08] MEDS: Isosorbide Mononitrate 30 MG ER.TAB PO SCH (12:08)
[2023-06-08] MEDS: Acetaminophen 325 MG TAB PO PRN (12:08)
[2023-06-08] MEDS: Sodium Chloride 1 GM TAB PO SCH ×3 (13:07→21:02)
[2023-06-08 14:14] VITALS: BMI 23.7
[2023-06-08] MEDS: prednisoLONE 1% Ophth Susp 5 ml Bottle EA EYE SCH ×2 (16:50→21:02)
[2023-06-08] MEDS: Atorvastatin Calcium 20 MG TAB PO SCH (21:02)
[2023-06-08] MEDS: Tamsulosin HCl 0.4 MG CAP PO SCH (21:02)
[2023-06-08] MEDS: Aspirin 81 mg Enteric Coated Tablet PO SCH (21:02)
[2023-06-09 05:23] LABS: Anion Gap 13 mmol/L (10-20); BUN (Urea Nitrogen) 23 mg/dL (8.4-25.7); Calc. Creatinine Clearance 74 mL/min (70-130); Calcium 9.4 mg/dL (7.8-10.44); Carbon Dioxide 22 mmol/L (23-31); Chloride 101 mmol/L (98-107); Estimated GFR 88; Glucose 104 mg/dL (83-110); Sodium 132 mmol/L (136-145)
[2023-06-09] MEDS: Docusate 100 MG CAP PO SCH (08:44)
[2023-06-09] MEDS: Clopidogrel Bisulfate 75 MG TAB PO SCH (08:45)
[2023-06-09] MEDS: Amlodipine 10 MG TAB PO SCH (08:45)
[2023-06-09] MEDS: Isosorbide Mononitrate 30 MG ER.TAB PO SCH (08:46)
[2023-06-09] MEDS: CO Q-10 CAPSULE 100 MG PO SCH (08:49)
[2023-06-09] MEDS: Sodium Chloride 1 GM TAB PO SCH ×2 (08:49→14:41)
[2023-06-09] MEDS: Timolol 0.5% Ophth Soln 5 ml Bottle L EYE SCH (08:49)
[2023-06-09] MEDS: levETIRAcetam 500 MG TAB PO SCH (08:49)
[2023-06-09] MEDS: prednisoLONE 1% Ophth Susp 5 ml Bottle EA EYE SCH ×2 (08:50→14:42)
[2023-06-09 11:51] VITALS: BP 106/68; TEMP 98.1
== END 2023-06-09 16:45 | disposition home health service (06) | DRG 100 ==
LOC: ERS 17:28 → CCU 19:41 → 2SE 06-06 14:44
PROVIDERS: ADMIT Internal Medicine; ATTEND Internal Medicine
PROC: 0T9B70Z Drainage of Bladder with Drainage Device, Via Natural or Artificial Opening (ICD-10-PCS; principal; 2023-06-03)
PROC: 0DH67UZ Insertion of Feeding Device into Stomach, Via Natural or Artificial Opening (ICD-10-PCS; 2023-06-03)
PROC: 0BH17EZ Insertion of Endotracheal Airway into Trachea, Via Natural or Artificial Opening (ICD-10-PCS; 2023-06-03)
PROC: 4A133R1 Monitoring of Arterial Saturation, Peripheral, Percutaneous Approach (ICD-10-PCS; 2023-06-03)
PROC: 5A1935Z Respiratory Ventilation, Less than 24 Consecutive Hours (ICD-10-PCS; 2023-06-03)
PROC: 4A00X4Z Measurement of Central Nervous Electrical Activity, External Approach (ICD-10-PCS; 2023-06-04)
PROC: 4A00X4Z Measurement of Central Nervous Electrical Activity, External Approach (ICD-10-PCS; 2023-06-06)
PROC: 4A00X4Z Measurement of Central Nervous Electrical Activity, External Approach (ICD-10-PCS; 2023-06-07)
DX: G40.909 Epilepsy, unspecified, not intractable, without status epilepticus (principal); G93.41 Metabolic encephalopathy; J96.00 Acute respiratory failure, unspecified whether with hypoxia or hypercapnia; M47.12 Other spondylosis with myelopathy, cervical region; E87.20 Acidosis, unspecified; I50.32 Chronic diastolic (congestive) heart failure; E87.1 Hypo-osmolality and hyponatremia; Z79.899 Other long term (current) drug therapy; Z79.82 Long term (current) use of aspirin; Z79.84 Long term (current) use of oral hypoglycemic drugs; E11.9 Type 2 diabetes mellitus without complications; I25.2 Old myocardial infarction; Z96.652 Presence of left artificial knee joint; Z98.890 Other specified postprocedural states; Z96.643 Presence of artificial hip joint, bilateral; I25.10 Atherosclerotic heart disease of native coronary artery without angina pectoris; E78.5 Hyperlipidemia, unspecified; I11.0 Hypertensive heart disease with heart failure; Z66 Do not resuscitate; Z88.8 Allergy status to other drugs, medicaments and biological substances; N40.0 Benign prostatic hyperplasia without lower urinary tract symptoms; M16.9 Osteoarthritis of hip, unspecified
CPT/HCPCS: 31500; 36415; 36416; 36600; 51702; 70450; 70496; 70498; 70551; 71045; 80048; 80053; 80306; 80307; 81001; 82140; 82533; 82550; 82805; 83605; 83880; 83930; 83935; 84146; 84300; 84439; 84443; 84481; 84484; 84550; 85025; 85610; 85730; 86850; 86900; 86901; 87040; 87086; 93005; 94002; 94003; 95711; 95819; 96374; 96375; J0692; J1940; J1953; J2060; J2704; J3370-JW; J3480; J3490; J7050; Q9967; S0028

== ENCOUNTER 2023-07-26 15:24 | Inpatient (IN) | payer MEDICARE ==
[2023-07-26 16:23] LABS: #Basophils 0.1 thou/uL (0.0-0.2); #Neutrophils 16.2 thou/uL (1.40-6.50); %Basophils 0.3 % (0.0-1.0); %Eosinophils 0.1 % (0.0-10.0); %Lymphocytes 5.6 % (21.0-51.0); %Monocytes 5.4 % (0.0-10.0); %Neutrophils 87.6 % (42.0-75.0); Hematocrit 37.8 % (42.0-52.0); Hemoglobin 12.8 g/dL (14.0-18.0); Mean Corpuscular HGB CONC 33.9 g/dL (32.0-36.0); Mean Corpuscular Hemoglobin 31.6 pg (27.0-31.0); Mean Corpuscular Volume 93.3 fl (78.0-98.0); Mean Platelet Volume 8.7 fL (7.4-10.4); Platelet Count 354 10x3/uL (130-400); RBC Distribution Width 13.3 % (11.5-14.5); Red Blood Cell (RBC) Count 4.05 mill/uL (4.70-6.10); White Blood Cell (WBC) Count 18.4 10x3/uL (4.8-10.8)
[2023-07-26 16:37] LABS: PTT 27.6 sec (22.9-36.1); Prothrombin Time 13.4 sec (12.0-14.7)
[2023-07-26 16:41] LABS: Actual Bicarbonate (HCO3v) 19.9 mEq/L (22-28); Calcium, Ionized (venous) 1.06 mmol/L (1.16-1.32); Chloride (VBG) 100 mmol/L (98-106); Hematocrit-VBG 42 % (42.0-52.0); Hemoglobin (Hb) 14.2 g/dL (12.6-17.4); Potassium (VBG) 4.04 mmol/L (3.70-5.30); Sodium 136 mmol/L (133-146); pH (venous) 7.486 (7.32-7.43)
[2023-07-26 16:43] LABS: Acetaminophen Less than 10 mcg/mL (10.0-30.0); Alcohol Less than 10.0 mg/dL (Less than 10); Salicylate Less than 8.0 mg/dL (15.0-30.0)
[2023-07-26 16:45] LABS: ALT (SGPT) 14 U/L (8-55); AST (SGOT) 17 U/L (5-34); Albumin 3.9 g/dL (3.4-4.8); Alcohol Less than 10.0 mg/dL (Less than 10); Alkaline Phosphatase 92 U/L (40-110); Anion Gap 17 mmol/L (10-20); BUN (Urea Nitrogen) 19 mg/dL (8.4-25.7); Bilirubin, Total 0.5 mg/dL (0.2-1.2); Calc. Creatinine Clearance 0 mL/min (70-130); Calcium 9.6 mg/dL (7.8-10.44); Carbon Dioxide 20 mmol/L (23-31); Chloride 102 mmol/L (98-107); Estimated GFR 78; Globulin 3.1 g/dL (2.4-3.5); Glucose 122 mg/dL (83-110); Lipase 28 U/L (8-78); Sodium 135 mmol/L (136-145)
[2023-07-26] MEDS ORDERED: Boostrix 0.5 ML (Tdap) VIAL (>/=7 yrs of age) ONE (17:45)
[2023-07-26] MEDS ORDERED: Cefepime 2 GM VIAL ONE (17:45)
[2023-07-26] MEDS ORDERED: levETIRAcetam 500 MG (5 mL) VIAL ONE (17:45)
[2023-07-26] MEDS ORDERED: Vancomycin 1 GM/200 ML (FROZEN) BAG ONE (17:45)
[2023-07-26 18:25] LABS: Magnesium 1.7 mg/dL (1.6-2.6)
[2023-07-26] MEDS ORDERED: Aspirin Chewable 81 MG TAB ONE (18:29)
[2023-07-26] MEDS ORDERED: Glucagon 1 MG/ML KIT IM PRN (18:41)
[2023-07-26] MEDS ORDERED: HumaLOG 300 UNITS/3 ML VIAL SC PRN ×2 (18:41)
[2023-07-26] MEDS ORDERED: Dextrose 5% in Water 1,000 ML IV PRN (18:41)
[2023-07-26] MEDS ORDERED: Acetaminophen 325 MG TAB PO PRN (18:41)
[2023-07-26] MEDS ORDERED: Dextrose 50% Abboject 50 ML SYRINGE SLOW IVP PRN (18:41)
[2023-07-26 19:44] LABS: Bacteria/HPF None Seen HPF (None Seen); Bilirubin Negative (Negative); Blood, Urine 2+ (Negative); CAUTI Indications for Culture Pelvic or flank pain; Clarity Clear (Clear); Glucose, Urine (Dipstick) Normal (Negative); Ketone, Urine Negative (Negative); Leukocyte Negative Leu/uL (Negative); Nitrite Negative (Negative); Protein, Urine (Dipstick) 50 mg/dL (Neg-Trace); Specific Gravity, Urine 1.036 (1.002-1.036); Squamous Epithelial None Seen HPF (0-3); Urobilinogen Normal mg/dL (Less than 2); WBC/HPF 0-3 HPF (0-3)
[2023-07-26 19:48] LABS: Urine Culture Reflex No No
[2023-07-26 19:52] LABS: Amphetamine Not Detected (NotDetected); Barbiturates Screen Not Detected (NotDetected); Benzodiazepine Screen Not Detected (NotDetected); Cocaine Metabolite Screen Not Detected (NotDetected); Methadone Not Detected (NotDetected); Methamphetamine Not Detected (NotDetected); Opiate Screen Not Detected (NotDetected); Oxycodone Screen Not Detected (NotDetected); Phencyclidine (PCP) Not Detected (NotDetected); THC/Cannabinoid Screen Not Detected (NotDetected); Tricyclic Screen Not Detected (NotDetected)
[2023-07-26] MEDS ORDERED: Vancomycin 1 GM in Premix 1 BAG IVPB SCH (21:00)
[2023-07-26 21:12] LABS: Lactic Acid 2.5 mmol/L (0.5-2.2)
[2023-07-26 21:34] LABS: Critical Call Chem Troponin I NUR.JR24@2133; Troponin I 0.339 ng/mL (< 0.028)
[2023-07-26] MEDS ORDERED: Lorazepam 2 MG/ML VIAL SLOW IVP PRN (22:49)
[2023-07-26 23:50] VITALS: BMI 29.0
[2023-07-26 23:52] LABS: Troponin I 0.379 ng/mL (< 0.028)
[2023-07-27] MEDS: Nitroglycerin 2% Ointment 1 INCH/1 GM Packet TOP SCH ×4 (00:30→22:43)
[2023-07-27] MEDS: Ondansetron PF 4 MG/2 ML Vial IVP PRN ×2 (02:37→07:24)
[2023-07-27] MEDS: Morphine 2 MG/ML VIAL SLOW IVP PRN ×3 (02:37→17:29)
[2023-07-27] MEDS: Cefepime 1 GM in Sodium Chloride 0.9% 100 ML IVPB SCH ×2 (04:32→17:31)
[2023-07-27 04:48] LABS: #Basophils 0.1 thou/uL (0.0-0.2); #Monocytes 2.6 thou/uL (0.11-0.59); #Neutrophils 12.9 thou/uL (1.40-6.50); %Basophils 0.3 % (0.0-1.0); %Eosinophils 0.2 % (0.0-10.0); %Lymphocytes 11.4 % (21.0-51.0); %Monocytes 14.7 % (0.0-10.0); %Neutrophils 72.8 % (42.0-75.0); Hematocrit 38.4 % (42.0-52.0); Hemoglobin 12.7 g/dL (14.0-18.0); Mean Corpuscular HGB CONC 33.1 g/dL (32.0-36.0); Mean Corpuscular Hemoglobin 30.8 pg (27.0-31.0); Mean Corpuscular Volume 93.2 fl (78.0-98.0); Mean Platelet Volume 8.7 fL (7.4-10.4); Platelet Count 321 10x3/uL (130-400); RBC Distribution Width 13.5 % (11.5-14.5); Red Blood Cell (RBC) Count 4.12 mill/uL (4.70-6.10); White Blood Cell (WBC) Count 17.7 10x3/uL (4.8-10.8)
[2023-07-27 05:10] LABS: Anion Gap 11 mmol/L (10-20); BUN (Urea Nitrogen) 17 mg/dL (8.4-25.7); Calc. Creatinine Clearance 72 mL/min (70-130); Calcium 9.1 mg/dL (7.8-10.44); Carbon Dioxide 24 mmol/L (23-31); Cardiac Risk 5.5 (Less than 4.5); Chloride 100 mmol/L (98-107); Cholesterol 224 mg/dl (< 200 Desired); Estimated GFR 86; Glucose 111 mg/dL (83-110); HDL Cholesterol 41 mg/dL (>60 Neg Risk); LDL Cholesterol, Calculated 155 mg/dL; Potassium 3.4 mmol/L (3.5-5.1); Sodium 132 mmol/L (136-145); Triglycerides 141 mg/dL (Less than 150)
[2023-07-27] MEDS: Vancomycin HCl 750 MG in Sodium Chloride 0.9% 250 ML 250 ML IVPB SCH ×2 (05:26→17:32)
[2023-07-27] MEDS ORDERED: FLU VACC QS2023(65UP)/MF59C/PF 60 MCG/0.5 ML SYRINGE IM ONE (09:00)
[2023-07-27] MEDS ORDERED: Potassium Chloride 20 MEQ TAB PO SCH (09:15)
[2023-07-27] MEDS: Aspirin 325 mg Enteric Coated Tablet PO SCH (12:02)
[2023-07-27] MEDS: Lisinopril 10 MG TAB PO SCH (12:03)
[2023-07-27] MEDS: Isosorbide Mononitrate 30 MG ER.TAB PO SCH (12:03)
[2023-07-27] MEDS: levETIRAcetam 500 MG TAB PO SCH ×2 (12:03→22:40)
[2023-07-27] MEDS: Clopidogrel Bisulfate 75 MG TAB PO SCH (12:03)
[2023-07-27] MEDS ORDERED: Iopamidol 370 76% 100 ML VIAL ONE (12:49)
[2023-07-27] MEDS ORDERED: Aspirin 81 mg Enteric Coated Tablet PO SCH (21:00)
[2023-07-27] MEDS ORDERED: Non-Formulary Item 1 EACH (Pravastatin Sodium [Pravastatin Sodium] 80 MG Tablet) PO SCH (21:00)
[2023-07-27] MEDS ORDERED: levETIRAcetam 500 MG (5 mL) VIAL SLOW IVP SCH (22:15)
[2023-07-27] MEDS: Atorvastatin Calcium 20 MG TAB PO SCH (22:40)
[2023-07-27] MEDS: Tamsulosin HCl 0.4 MG CAP PO SCH (22:41)
[2023-07-28 06:00] LABS: #Monocytes 2.3 thou/uL (0.11-0.59); #Neutrophils 12.7 thou/uL (1.40-6.50); %Basophils 0.2 % (0.0-1.0); %Eosinophils 0.2 % (0.0-10.0); %Lymphocytes 8.3 % (21.0-51.0); %Monocytes 14.1 % (0.0-10.0); %Neutrophils 76.8 % (42.0-75.0); Hematocrit 34.2 % (42.0-52.0); Hemoglobin 11.6 g/dL (14.0-18.0); Mean Corpuscular HGB CONC 33.9 g/dL (32.0-36.0); Mean Corpuscular Hemoglobin 31.4 pg (27.0-31.0); Mean Corpuscular Volume 92.4 fl (78.0-98.0); Mean Platelet Volume 8.8 fL (7.4-10.4); Platelet Count 315 10x3/uL (130-400); RBC Distribution Width 13.7 % (11.5-14.5); White Blood Cell (WBC) Count 16.5 10x3/uL (4.8-10.8)
[2023-07-28 06:25] LABS: Vancomycin, Trough 8.6 ug/mL
[2023-07-28 06:37] LABS: Anion Gap 14 mmol/L (10-20); BUN (Urea Nitrogen) 22 mg/dL (8.4-25.7); Calc. Creatinine Clearance 72 mL/min (70-130); Calcium 8.7 mg/dL (7.8-10.44); Carbon Dioxide 21 mmol/L (23-31); Chloride 104 mmol/L (98-107); Estimated GFR 86; Glucose 103 mg/dL (83-110); Magnesium 2.2 mg/dL (1.6-2.6); Potassium 3.7 mmol/L (3.5-5.1); Sodium 135 mmol/L (136-145)
[2023-07-28] MEDS: Cefepime 1 GM in Sodium Chloride 0.9% 100 ML IVPB SCH ×2 (06:45→17:11)
[2023-07-28] MEDS: Vancomycin HCl 750 MG in Sodium Chloride 0.9% 250 ML 250 ML IVPB SCH (06:46)
[2023-07-28] MEDS: Nitroglycerin 2% Ointment 1 INCH/1 GM Packet TOP SCH ×3 (07:39→21:20)
[2023-07-28] MEDS ORDERED: Lorazepam 2 MG/ML VIAL SLOW IVP PRN (07:45)
[2023-07-28] MEDS: levETIRAcetam 500 MG TAB PO SCH ×2 (08:41→21:17)
[2023-07-28] MEDS: Lisinopril 10 MG TAB PO SCH (08:42)
[2023-07-28] MEDS: Aspirin 325 mg Enteric Coated Tablet PO SCH (08:42)
[2023-07-28] MEDS: Isosorbide Mononitrate 30 MG ER.TAB PO SCH (08:42)
[2023-07-28] MEDS: Clopidogrel Bisulfate 75 MG TAB PO SCH (08:42)
[2023-07-28] MEDS: D5 0.9% NS w/ 20 mEq KCl 1,000 ML IV SCH (10:02)
[2023-07-28] MEDS: Vancomycin 1 GM in Premix 1 BAG IVPB SCH (10:20)
[2023-07-28] MEDS ORDERED: Vancomycin 1 GM in Premix 1 BAG IVPB SCH (18:00)
[2023-07-28] MEDS: Atorvastatin Calcium 20 MG TAB PO SCH (21:23)
[2023-07-28] MEDS: Tamsulosin HCl 0.4 MG CAP PO SCH (21:23)
[2023-07-29] MEDS: D5 0.9% NS w/ 20 mEq KCl 1,000 ML IV SCH ×2 (00:05→11:50)
[2023-07-29] MEDS ORDERED: hydrALAZINE 20 MG/ML VIAL SLOW IVP SCH (00:15)
[2023-07-29 05:05] LABS: #Eosinphils 0.1 thou/uL (0.0-0.7); #Monocytes 2.1 thou/uL (0.11-0.59); #Neutrophils 15.9 thou/uL (1.40-6.50); %Basophils 0.2 % (0.0-1.0); %Eosinophils 0.5 % (0.0-10.0); %Lymphocytes 8.7 % (21.0-51.0); %Monocytes 10.4 % (0.0-10.0); %Neutrophils 79.5 % (42.0-75.0); Hemoglobin 12.1 g/dL (14.0-18.0); Mean Corpuscular HGB CONC 33.6 g/dL (32.0-36.0); Mean Corpuscular Hemoglobin 31.2 pg (27.0-31.0); Mean Corpuscular Volume 92.8 fl (78.0-98.0); Mean Platelet Volume 8.7 fL (7.4-10.4); Platelet Count 327 10x3/uL (130-400); RBC Distribution Width 13.5 % (11.5-14.5); Red Blood Cell (RBC) Count 3.88 mill/uL (4.70-6.10)
[2023-07-29 05:32] LABS: Anion Gap 14 mmol/L (10-20); BUN (Urea Nitrogen) 17 mg/dL (8.4-25.7); Calc. Creatinine Clearance 82 mL/min (70-130); Calcium 8.7 mg/dL (7.8-10.44); Carbon Dioxide 21 mmol/L (23-31); Chloride 105 mmol/L (98-107); Estimated GFR 90; Glucose 100 mg/dL (83-110); Potassium 3.2 mmol/L (3.5-5.1); Sodium 137 mmol/L (136-145)
[2023-07-29] MEDS: Cefepime 1 GM in Sodium Chloride 0.9% 100 ML IVPB SCH (05:40)
[2023-07-29] MEDS: Nitroglycerin 2% Ointment 1 INCH/1 GM Packet TOP SCH ×2 (05:43→13:32)
[2023-07-29] MEDS ORDERED: Electrolyte Replacement Protocol 1 EACH FS PRN (07:45)
[2023-07-29] MEDS: levETIRAcetam 500 MG TAB PO SCH ×3 (08:23→19:56)
[2023-07-29] MEDS: Lisinopril 10 MG TAB PO SCH (08:23)
[2023-07-29] MEDS: Clopidogrel Bisulfate 75 MG TAB PO SCH (08:23)
[2023-07-29] MEDS: Aspirin 325 mg Enteric Coated Tablet PO SCH (08:23)
[2023-07-29] MEDS: Isosorbide Mononitrate 30 MG ER.TAB PO SCH (08:23)
[2023-07-29] MEDS: Potassium Chloride 20 MEQ in Premix 1 BAG IVPB SCH ×2 (08:35→10:59)
[2023-07-29] MEDS: Vancomycin 1 GM in Premix 1 BAG IVPB SCH ×2 (10:59)
[2023-07-29] MEDS: Morphine 2 MG/ML VIAL SLOW IVP PRN ×2 (10:59→17:43)
[2023-07-29 17:26] LABS: Potassium 3.6 mmol/L (3.5-5.1)
[2023-07-29] MEDS: Cefepime 2 GM in Sodium Chloride 0.9% 100 ML IVPB SCH (17:42)
[2023-07-29] MEDS: Tamsulosin HCl 0.4 MG CAP PO SCH (19:55)
[2023-07-29] MEDS: Atorvastatin Calcium 20 MG TAB PO SCH (19:56)
[2023-07-29 23:32] LABS: Vancomycin, Trough 13.6 ug/mL
[2023-07-30] MEDS: Vancomycin 1 GM in Premix 1 BAG IVPB SCH ×3 (00:58→23:51)
[2023-07-30] MEDS: D5 0.9% NS w/ 20 mEq KCl 1,000 ML IV SCH ×2 (01:45→14:32)
[2023-07-30] MEDS: Cefepime 2 GM in Sodium Chloride 0.9% 100 ML IVPB SCH ×2 (04:59→18:04)
[2023-07-30 05:41] LABS: #Eosinphils 0.2 thou/uL (0.0-0.7); #Monocytes 1.7 thou/uL (0.11-0.59); #Neutrophils 11.6 thou/uL (1.40-6.50); %Basophils 0.3 % (0.0-1.0); %Eosinophils 1.3 % (0.0-10.0); %Lymphocytes 9.3 % (21.0-51.0); %Monocytes 11.1 % (0.0-10.0); %Neutrophils 77.5 % (42.0-75.0); Hematocrit 33.8 % (42.0-52.0); Hemoglobin 11.4 g/dL (14.0-18.0); Mean Corpuscular HGB CONC 33.7 g/dL (32.0-36.0); Mean Corpuscular Volume 91.8 fl (78.0-98.0); Platelet Count 283 10x3/uL (130-400); RBC Distribution Width 13.5 % (11.5-14.5); Red Blood Cell (RBC) Count 3.68 mill/uL (4.70-6.10)
[2023-07-30 05:59] LABS: BUN (Urea Nitrogen) 18 mg/dL (8.4-25.7); Calc. Creatinine Clearance 82 mL/min (70-130); Calcium 8.5 mg/dL (7.8-10.44); Carbon Dioxide 22 mmol/L (23-31); Chloride 105 mmol/L (98-107); Estimated GFR 90; Glucose 121 mg/dL (83-110); Potassium 3.4 mmol/L (3.5-5.1); Sodium 132 mmol/L (136-145)
[2023-07-30 06:00] LABS: Anion Gap 8 mmol/L (10-20)
[2023-07-30] MEDS ORDERED: Potassium Chloride 20 MEQ TAB PO SCH (08:00)
[2023-07-30] MEDS: Lisinopril 10 MG TAB PO SCH (09:37)
[2023-07-30] MEDS: Clopidogrel Bisulfate 75 MG TAB PO SCH (09:37)
[2023-07-30] MEDS: levETIRAcetam 500 MG TAB PO SCH ×2 (09:39→21:29)
[2023-07-30] MEDS: Isosorbide Mononitrate 30 MG ER.TAB PO SCH (09:40)
[2023-07-30] MEDS: Aspirin 325 mg Enteric Coated Tablet PO SCH (09:40)
[2023-07-30 15:38] LABS: Potassium 3.9 mmol/L (3.5-5.1)
[2023-07-30] MEDS: Tamsulosin HCl 0.4 MG CAP PO SCH (21:28)
[2023-07-30] MEDS: Atorvastatin Calcium 20 MG TAB PO SCH (21:28)
[2023-07-30] MEDS: Ondansetron PF 4 MG/2 ML Vial IVP PRN (21:30)
[2023-07-31] MEDS ORDERED: Lidocaine 2% Viscous Solution 10 ML, Aluminum & Magnesium Hydroxide 30 ML SSW SCH (01:00)
[2023-07-31] MEDS ORDERED: Lorazepam 2 MG/ML VIAL SLOW IVP SCH (01:00)
[2023-07-31] MEDS: D5 0.9% NS w/ 20 mEq KCl 1,000 ML IV SCH ×2 (02:23→16:49)
[2023-07-31] MEDS: Cefepime 2 GM in Sodium Chloride 0.9% 100 ML IVPB SCH ×2 (07:49→17:37)
[2023-07-31] MEDS: Clopidogrel Bisulfate 75 MG TAB PO SCH ×2 (09:18→10:25)
[2023-07-31] MEDS: Isosorbide Mononitrate 30 MG ER.TAB PO SCH ×2 (09:18→10:25)
[2023-07-31] MEDS: Aspirin 325 mg Enteric Coated Tablet PO SCH ×2 (09:18→10:25)
[2023-07-31] MEDS: Lisinopril 10 MG TAB PO SCH ×2 (09:19→10:26)
[2023-07-31] MEDS: levETIRAcetam 500 MG TAB PO SCH ×3 (09:19→22:25)
[2023-07-31 13:35] LABS: #Eosinphils 0.1 thou/uL (0.0-0.7); #Monocytes 2.5 thou/uL (0.11-0.59); #Neutrophils 13.7 thou/uL (1.40-6.50); %Basophils 0.2 % (0.0-1.0); %Eosinophils 0.6 % (0.0-10.0); %Monocytes 13.9 % (0.0-10.0); %Neutrophils 75.6 % (42.0-75.0); Hematocrit 36.5 % (42.0-52.0); Hemoglobin 12.2 g/dL (14.0-18.0); Mean Corpuscular HGB CONC 33.4 g/dL (32.0-36.0); Mean Corpuscular Hemoglobin 30.7 pg (27.0-31.0); Mean Corpuscular Volume 91.9 fl (78.0-98.0); Mean Platelet Volume 8.9 fL (7.4-10.4); Platelet Count 310 10x3/uL (130-400); RBC Distribution Width 13.2 % (11.5-14.5); Red Blood Cell (RBC) Count 3.97 mill/uL (4.70-6.10); White Blood Cell (WBC) Count 18.1 10x3/uL (4.8-10.8)
[2023-07-31] MEDS: Vancomycin 1 GM in Premix 1 BAG IVPB SCH (13:38)
[2023-07-31 13:51] LABS: Anion Gap 15 mmol/L (10-20); BUN (Urea Nitrogen) 12 mg/dL (8.4-25.7); Calc. Creatinine Clearance 87 mL/min (70-130); Calcium 8.8 mg/dL (7.8-10.44); Carbon Dioxide 20 mmol/L (23-31); Chloride 102 mmol/L (98-107); Estimated GFR 91; Glucose 129 mg/dL (83-110); Potassium 3.5 mmol/L (3.5-5.1); Sodium 133 mmol/L (136-145)
[2023-07-31] MEDS ORDERED: Potassium Chloride 20 MEQ TAB PO SCH (14:30)
[2023-07-31] MEDS: Ondansetron PF 4 MG/2 ML Vial IVP PRN (14:46)
[2023-07-31] MEDS: Lorazepam 2 MG/ML VIAL SLOW IVP PRN ×2 (14:47→17:32)
[2023-07-31] MEDS: Tamsulosin HCl 0.4 MG CAP PO SCH (22:25)
[2023-07-31] MEDS: Atorvastatin Calcium 20 MG TAB PO SCH (22:25)
[2023-07-31 22:37] LABS: Vancomycin, Trough 8.2 ug/mL
[2023-08-01] MEDS: Lorazepam 2 MG/ML VIAL SLOW IVP PRN ×2 (00:34→06:24)
[2023-08-01] MEDS: Vancomycin 1 GM in Premix 1 BAG IVPB SCH ×2 (00:35→12:14)
[2023-08-01] MEDS: Cefepime 2 GM in Sodium Chloride 0.9% 100 ML IVPB SCH (05:46)
[2023-08-01] MEDS: D5 0.9% NS w/ 20 mEq KCl 1,000 ML IV SCH (06:24)
[2023-08-01 07:48] LABS: #Basophils 0.1 thou/uL (0.0-0.2); #Eosinphils 0.3 thou/uL (0.0-0.7); #Monocytes 1.9 thou/uL (0.11-0.59); #Neutrophils 10.6 thou/uL (1.40-6.50); %Basophils 0.3 % (0.0-1.0); %Eosinophils 1.7 % (0.0-10.0); %Lymphocytes 12.6 % (21.0-51.0); %Monocytes 12.7 % (0.0-10.0); Hematocrit 34.2 % (42.0-52.0); Hemoglobin 11.6 g/dL (14.0-18.0); Mean Corpuscular HGB CONC 33.9 g/dL (32.0-36.0); Mean Corpuscular Hemoglobin 30.6 pg (27.0-31.0); Mean Corpuscular Volume 90.2 fl (78.0-98.0); Mean Platelet Volume 9.1 fL (7.4-10.4); Platelet Count 308 10x3/uL (130-400); RBC Distribution Width 13.2 % (11.5-14.5); Red Blood Cell (RBC) Count 3.79 mill/uL (4.70-6.10); White Blood Cell (WBC) Count 14.8 10x3/uL (4.8-10.8)
[2023-08-01 08:02] LABS: Anion Gap 13 mmol/L (10-20); BUN (Urea Nitrogen) 13 mg/dL (8.4-25.7); Calc. Creatinine Clearance 87 mL/min (70-130); Calcium 8.5 mg/dL (7.8-10.44); Carbon Dioxide 23 mmol/L (23-31); Chloride 100 mmol/L (98-107); Estimated GFR 91; Glucose 112 mg/dL (83-110); Potassium 3.3 mmol/L (3.5-5.1); Sodium 133 mmol/L (136-145)
[2023-08-01 09:07] VITALS: TEMP 98.2
[2023-08-01] MEDS: levETIRAcetam 500 MG TAB PO SCH (10:12)
[2023-08-01] MEDS: Lisinopril 10 MG TAB PO SCH (10:13)
[2023-08-01] MEDS: Isosorbide Mononitrate 30 MG ER.TAB PO SCH (10:13)
[2023-08-01] MEDS: Clopidogrel Bisulfate 75 MG TAB PO SCH (10:13)
[2023-08-01] MEDS: Aspirin 325 mg Enteric Coated Tablet PO SCH (10:13)
[2023-08-01 12:49] VITALS: BP 142/90
[2023-08-01] MEDS ORDERED: Potassium Chloride 20 MEQ TAB PO SCH (13:45)
== END 2023-08-01 14:23 | disposition hospice, home (50) | DRG 871 ==
LOC: ERS 15:24 → ERHOLD 18:41 → 2NO 23:02 → T4-A 07-31 16:27
PROVIDERS: ADMIT Internal Medicine; ATTEND Internal Medicine
PROC: 4A043R1 Measurement of Venous Saturation, Peripheral, Percutaneous Approach (ICD-10-PCS; principal; 2023-07-26)
PROC: 3E03329 Introduction of Other Anti-infective into Peripheral Vein, Percutaneous Approach (ICD-10-PCS; 2023-07-27)
DX: A41.9 Sepsis, unspecified organism (principal); G93.41 Metabolic encephalopathy; I21.4 Non-ST elevation (NSTEMI) myocardial infarction; I63.9 Cerebral infarction, unspecified; I50.32 Chronic diastolic (congestive) heart failure; G81.91 Hemiplegia, unspecified affecting right dominant side; Z51.5 Encounter for palliative care; Z66 Do not resuscitate; G47.33 Obstructive sleep apnea (adult) (pediatric); E11.9 Type 2 diabetes mellitus without complications; I11.0 Hypertensive heart disease with heart failure; N40.0 Benign prostatic hyperplasia without lower urinary tract symptoms; E78.5 Hyperlipidemia, unspecified; G40.909 Epilepsy, unspecified, not intractable, without status epilepticus; Z88.8 Allergy status to other drugs, medicaments and biological substances; Z79.82 Long term (current) use of aspirin; Z79.899 Other long term (current) drug therapy
CPT/HCPCS: 36415; 36416; 70450; 70551; 71260; 71275; 72125; 72170; 74177; 80048; 80053; 80061; 80177; 80202; 80306; 80307; 81001; 82140; 82805; 83605; 83690; 83735; 84146; 84443; 84484; 85025; 85379; 85610; 85730; 87040; 87086; 90471; 90715; 93005; 93306; 94760; 96374; 96375; J0360; J0692; J1953; J2060; J2272; J2405; J3370; J3370-JW; J3480; J3490; J7050; Q9967